=== PATIENT | female | born 1950 | race Caucasian/White ===

== ENCOUNTER 2020-08-21 13:20 | Outpatient (REF) | payer OTHER, SELFPAY ==
--- NOTE | 2020-08-21 13:23 | CT_ITS ---
EXAMINATION: CT CHEST WITHOUT CONTRAST CLINICAL INFORMATION: Pulmonary nodule COMPARISON: None TECHNIQUE: Multidetector volumetric CT imaging of the chest was done. Axial MIP volume rendering provided. Sagittal and coronal reformatted images were obtained. This CT examination was performed using dose optimization techniques as appropriate, variously including the following: *Automated exposure control *Adjustment of mA and/or kV according to patient size (this includes techniques or standardized protocols for targeted exams where dose is matched to indication/reason for exam; i.e. extremities or head) *Use of iterative reconstruction technique DLP: 177 mGy-cm FINDINGS: BETA TESTER: Unremarkable LUNGS: There is a 3 mm peripheral or subpleural right upper lobe nodule adjacent to the fissure axial image 152 series 7. There is a 2 mm peripheral right upper lobe peripheral or subpleural nodule adjacent to the minor fissure axial 267. There is a 3 mm peripheral or subpleural left lower lobe nodule adjacent to the fissure axial image 281 series 7. There is a 3 mm left upper lobe peripheral or subpleural nodule axial image 284 series 7. There are peripheral or subpleural right lower lobe nodules adjacent to the major fissure measuring 2 x 5 mm axial image 293, 4 x 6 mm axial image 296 and 3 x 5 mm axial image 310 series 7. There is a peripheral or subpleural right middle lobe nodule measuring 4 mm axial image 336 series 7. There is a small calcified 1 mm to 2 mm central right lower lobe nodule axial image 332 series 7. MEDIASTINUM: The heart does not appear enlarged. There is mild coronary artery calcification. There is no pericardial effusion. The thoracic aorta is normal in caliber. There are no enlarged hilar or mediastinal lymph nodes. PLEURA: There is no pleural effusion. No pleural mass or thickening. AXILLA: No lymphadenopathy. UPPER ABDOMEN: The gallbladder appears contracted. There are gallstones in the gallbladder. There may be diverticulosis of the colon. OSSEOUS STRUCTURES: There are degenerative changes of the spine. CT/CT chest wo con IMPRESSION: Small bilateral pulmonary nodules the majority of which likely represent subpleural lymph nodes. Mild coronary artery calcification. Gallstones.
== END 2020-08-21 13:21 | disposition home or self-care (01) ==
LOC: HO.CT 13:20
PROVIDERS: PCP Nurse Practitioner Family; Visit Provider Hospitalist
DX: R91.8 Other nonspecific abnormal finding of lung field (principal)
CPT/HCPCS: 71250

== ENCOUNTER → 2020-09-03 09:19 | Outpatient (BNVA) | payer OTHER, SELFPAY | PROVIDERS: PCP Nurse Practitioner Family; Referring Provider Nurse Practitioner Family; Visit Provider Hospitalist | DX: Z76.89 Persons encountering health services in other specified circumstances (principal) ==

== ENCOUNTER → 2021-01-09 14:28 | Outpatient (BNVA) | payer MEDICARE, SELFPAY | PROVIDERS: PCP Nurse Practitioner Family; Visit Provider Internal Medicine | DX: J44.9 Chronic obstructive pulmonary disease, unspecified (principal); R91.8 Other nonspecific abnormal finding of lung field; J30.9 Allergic rhinitis, unspecified; Z87.891 Personal history of nicotine dependence; Z79.899 Other long term (current) drug therapy | CPT/HCPCS: 99212 ==

== ENCOUNTER → 2021-02-26 09:03 | Outpatient (BNVA) | payer MEDICARE, SELFPAY | PROVIDERS: PCP Nurse Practitioner Family; Visit Provider Hospitalist | DX: J30.1 Allergic rhinitis due to pollen (principal); J44.9 Chronic obstructive pulmonary disease, unspecified; R91.8 Other nonspecific abnormal finding of lung field; R06.00 Dyspnea, unspecified; R05 Cough; G47.33 Obstructive sleep apnea (adult) (pediatric); Z79.899 Other long term (current) drug therapy | CPT/HCPCS: 99212 ==

== ENCOUNTER 2021-02-27 16:19 | Outpatient (REF) | payer MEDICARE, SELFPAY ==
--- NOTE | ~2021-02-27 | CT_ITS ---
EXAMINATION: CT CHEST WITHOUT CONTRAST CLINICAL INFORMATION: Pulmonary nodule follow-up COMPARISON: 08/21/2020 TECHNIQUE: Multidetector volumetric CT imaging of the chest was done. Axial MIP volume rendering provided. Sagittal and coronal reformatted images were obtained. This CT examination was performed using dose optimization techniques as appropriate, variously including the following: *Automated exposure control *Adjustment of mA and/or kV according to patient size (this includes techniques or standardized protocols for targeted exams where dose is matched to indication/reason for exam; i.e. extremities or head) *Use of iterative reconstruction technique DLP: 178 mGy-cm FINDINGS: LUNGS: Again seen are scattered pleural nodules, most likely along the right major fissure. No intraparenchymal pulmonary nodules are identified. No emphysema, pulmonary fibrosis or evidence of other interstitial lung disease. No bronchial wall thickening or bronchiectasis. MEDIASTINUM: Normal heart size. No pericardial effusion. Coronary calcifications. No mediastinal, hilar or supraclavicular adenopathy. PLEURA: There is no pleural effusion. No pleural mass or thickening. AXILLA: No lymphadenopathy. UPPER ABDOMEN: Cholelithiasis. OSSEOUS STRUCTURES: No acute or suspicious osseous abnormalities. CT/CT chest wo con IMPRESSION: No suspicious pulmonary nodules. There are stable scattered pleural nodules as seen previously, the appearance of which is classic for lymph nodes.
== END 2021-02-27 16:20 | disposition home or self-care (01) ==
LOC: HO.CT 16:19
PROVIDERS: PCP Nurse Practitioner Family; Visit Provider Hospitalist
DX: R91.8 Other nonspecific abnormal finding of lung field (principal)
CPT/HCPCS: 71250

== ENCOUNTER → 2021-03-04 09:10 | Outpatient (REF) | payer MEDICARE, SELFPAY | LOC: HO.SL 09:10 | PROVIDERS: PCP Nurse Practitioner Family; Visit Provider Hospitalist | DX: G47.33 Obstructive sleep apnea (adult) (pediatric) (principal) | CPT/HCPCS: 95806 ==

== ENCOUNTER → 2021-03-18 09:23 | Outpatient (BNVA) | payer MEDICARE, SELFPAY | PROVIDERS: PCP Nurse Practitioner Family; Visit Provider Hospitalist | DX: G47.33 Obstructive sleep apnea (adult) (pediatric) (principal); R05 Cough; J30.1 Allergic rhinitis due to pollen; J44.9 Chronic obstructive pulmonary disease, unspecified; R06.00 Dyspnea, unspecified; R91.8 Other nonspecific abnormal finding of lung field | CPT/HCPCS: 99212 ==

== ENCOUNTER → 2021-06-13 14:44 | Outpatient (BNVA) | payer MEDICARE, SELFPAY | PROVIDERS: PCP Nurse Practitioner Family; Visit Provider Hospitalist | DX: G47.33 Obstructive sleep apnea (adult) (pediatric) (principal); J30.1 Allergic rhinitis due to pollen; R05 Cough; J44.9 Chronic obstructive pulmonary disease, unspecified; R06.00 Dyspnea, unspecified; R91.8 Other nonspecific abnormal finding of lung field | CPT/HCPCS: 99212 ==

== ENCOUNTER → 2021-07-04 13:19 | Outpatient (BNVA) | payer MEDICARE, SELFPAY | PROVIDERS: PCP Nurse Practitioner Family; Visit Provider Hospitalist | DX: G47.33 Obstructive sleep apnea (adult) (pediatric) (principal); R05.9 Cough, unspecified; J30.1 Allergic rhinitis due to pollen; J45.51 Severe persistent asthma with (acute) exacerbation; R91.8 Other nonspecific abnormal finding of lung field; R06.00 Dyspnea, unspecified | CPT/HCPCS: 96372; 99212; J2930 ==

== ENCOUNTER → 2021-08-01 14:43 | Outpatient (BNVA) | payer MEDICARE, SELFPAY | PROVIDERS: PCP Nurse Practitioner Family; Visit Provider Hospitalist | DX: J45.51 Severe persistent asthma with (acute) exacerbation (principal); J30.1 Allergic rhinitis due to pollen; G47.33 Obstructive sleep apnea (adult) (pediatric); R91.8 Other nonspecific abnormal finding of lung field; R05.9 Cough, unspecified; R06.00 Dyspnea, unspecified | CPT/HCPCS: 99212 ==

== ENCOUNTER → 2021-08-04 09:43 | Outpatient (BNVA) | payer MEDICARE, SELFPAY | PROVIDERS: PCP Nurse Practitioner Family; Visit Provider Hospitalist | DX: J45.51 Severe persistent asthma with (acute) exacerbation (principal) | CPT/HCPCS: 99211 ==

== ENCOUNTER → 2022-08-25 13:56 | Outpatient (BNVA) | payer MEDICARE, SELFPAY | PROVIDERS: PCP Nurse Practitioner Family; Visit Provider Hospitalist | DX: J45.50 Severe persistent asthma, uncomplicated (principal); G47.33 Obstructive sleep apnea (adult) (pediatric); J30.1 Allergic rhinitis due to pollen; R06.00 Dyspnea, unspecified; R91.8 Other nonspecific abnormal finding of lung field; R05.9 Cough, unspecified | CPT/HCPCS: 99212 ==

== ENCOUNTER 2023-03-15 11:04 | Outpatient (REF) | payer MEDICARE, SELFPAY ==
--- NOTE | ~2023-03-15 | CT_ITS ---
EXAMINATION: CT CHEST WITHOUT CONTRAST CLINICAL INFORMATION: Follow-up pulmonary nodules COMPARISON: Previous chest CT and most recent February 2021 TECHNIQUE: Multidetector volumetric CT imaging of the chest was done. Axial MIP volume rendering provided. Sagittal and coronal reformatted images were obtained. This CT examination was performed using dose optimization techniques as appropriate, variously including the following: *Automated exposure control *Adjustment of mA and/or kV according to patient size (this includes techniques or standardized protocols for targeted exams where dose is matched to indication/reason for exam; i.e. extremities or head) *Use of iterative reconstruction technique DLP: 173 mGy-cm FINDINGS: COLLAR TAILOR: Unremarkable LUNGS: Stable small pulmonary nodules. Largest pulmonary nodules are a 2 x 6 mm peripheral or subpleural right lower lobe nodule adjacent to the major fissure axial image 285 series 5 and 4 mm peripheral or subpleural right middle lobe nodule axial 310 series 5. Again, appearance is suggestive of peripheral or subpleural lymph nodes. No new pulmonary nodule. Mild scarring or chronic subsegmental atelectasis in the medial right lower lobe adjacent to vertebral body bony osteophyte. The lungs are otherwise clear. MEDIASTINUM: The mediastinum is normal. CORONARY ARTERY CALCIFICATION: Mild PLEURA: There is no pleural effusion. No pleural mass or thickening. AXILLA: No lymphadenopathy. UPPER ABDOMEN: Gallstone OSSEOUS STRUCTURES: There are degenerative changes of the spine. CT/CT chest wo IV con IMPRESSION: Stable small pulmonary nodules. Fleischner guidelines were followed.
== END 2023-03-15 11:05 | disposition home or self-care (01) ==
LOC: HO.CT 11:04
PROVIDERS: PCP Nurse Practitioner Family; Visit Provider Hospitalist
DX: R91.8 Other nonspecific abnormal finding of lung field (principal)
CPT/HCPCS: 71250

== ENCOUNTER → 2023-03-31 09:14 | Outpatient (BNVA) | payer MEDICARE, SELFPAY | PROVIDERS: PCP Nurse Practitioner Family; Visit Provider Hospitalist | DX: J45.50 Severe persistent asthma, uncomplicated (principal); J30.1 Allergic rhinitis due to pollen; G47.33 Obstructive sleep apnea (adult) (pediatric); R91.8 Other nonspecific abnormal finding of lung field | CPT/HCPCS: 99212 ==

== ENCOUNTER 2024-08-03 14:56 | Outpatient (REF) | payer MEDICARE, SELFPAY ==
--- NOTE | ~2024-08-03 | XR_ITS ---
EXAMINATION: XR CHEST CLINICAL INFORMATION: Dyspnea, unspecified R06.00. COMPARISON: XR Chest 01/14/2016 (Report only). CT chest February 2023 TECHNIQUE: 3 views of the chest were obtained. FINDINGS: No acute significant abnormality is noted involving the heart, lungs, mediastinum, bony thorax or soft tissues. Calcification of the dorsal aorta XR/XR chest 2V IMPRESSION: No acute disease Electronically signed by: Mychal Espinoza MD 09/18/2024 08:19 AM MAR[facility]
== END 2024-08-03 14:57 | disposition home or self-care (01) ==
LOC: HO.XRAY 14:56
PROVIDERS: PCP Nurse Practitioner Family; Visit Provider Hospitalist
DX: R06.00 Dyspnea, unspecified (principal); R91.8 Other nonspecific abnormal finding of lung field; J45.50 Severe persistent asthma, uncomplicated; G47.33 Obstructive sleep apnea (adult) (pediatric); J30.1 Allergic rhinitis due to pollen
CPT/HCPCS: 71046; 99212

== ENCOUNTER 2024-08-03 14:56 | Outpatient (AMB) | payer MEDICARE, SELFPAY ==
[2024-08-03 14:58] VITALS: BP 140/60; PULSE 88; O2SAT 93
--- NOTE | 2024-08-03 14:58 | A.OFFVIS_ITS ---
Vital Signs 08/03/24 14:58 Weight 210 lb 8.663 oz BP 140/60 H Blood Pressure Location Lt brachial Position Sitting Pulse 88 Pulse Source Pulse Oximeter Pulse Oximetry (%) 93 Oxygen Delivery Method Room Air Intake Visit Reasons: asthma Allergies codeine Allergy (Severe, Verified 08/03/24 15:02) Vomiting erythromycin base Allergy (Severe, Verified 08/03/24 15:02) Hives guaifenesin Allergy (Severe, Verified 08/03/24 15:02) Hives meperidine [From Demerol] Allergy (Severe, Verified 08/03/24 15:02) Tachycardia Penicillins Allergy (Severe, Verified 08/03/24 15:02) Hives fluticasone furoate [From Trelegy Ellipta] Allergy (Intermediate, Verified 08/03/24 15:02) Rash, Hives umeclidinium [From Trelegy Ellipta] Allergy (Intermediate, Verified 08/03/24 15:02) Rash, Hives vilanterol [From Trelegy Ellipta] Allergy (Intermediate, Verified 08/03/24 15:02) Rash, Hives nitrofurantoin [From Macrobid] Adverse Reaction (Intermediate, Verified 08/03/24 15:02) Nausea nirmatrelvir [From Paxlovid] Adverse Reaction (Verified 08/03/24 15:02) Abdominal Pain ritonavir [From Paxlovid] Adverse Reaction (Verified 08/03/24 15:02) Abdominal Pain Medication List - Last Reconciled 08/03/24 by Monica Montague LPN albuterol sulfate 90 mcg/actuation 2 puffs inhalation Q6H PRN albuterol sulfate 2.5 mg (3 mL) inhalation Q6H PRN 30 days amlodipine 5 mg PO DAILY atorvastatin 20 mg PO DAILY budesonide 0.5 mg (2 mL) inhalation BID 30 days conjugated estrogens (Premarin) 0.625 mg vaginal DAILY dupilumab (Dupixent) 300 mg (2 mL) subcut Q2W 365 days hydrochlorothiazide 12.5 mg PO DAILY hydrocortisone 2.5% topical levothyroxine 125 mcg PO DAILY lisinopril 40 mg PO DAILY lorazepam 0.5 mg PO DAILY PRN omeprazole 20 mg PO DAILY sertraline 25 mg PO DAILY HPI Comments Details: The patient is a 73 y/o woman with known asthma in addition to pulmonary nodules. She did recently have a CT scan of the chest at [facility] which reviewed demonstrating stable pulmonary nodules. Still the patient is complaining of left-sided chest discomfort. Discomfort appears to be intermittent lasting between seconds to minutes. She describes it as an ache. It is not reproducible. It does not radiate. We did review the CT scan of the chest again and there is no clear explanation for the chest discomfort. With other significant past medical history of heart disease the patient should have complete cardiac evaluation. The patient also has been using QVAR for her asthma. Still been complaining of shortness of breath and coughing. We did check her hypersensitivity panel in addition to her eosinophil count and IgE. No significant abnormalities noted. Therefore, we will optimize his therapy with the addition of a long-acting beta agonist. However, the patient has had significant muscle spasms in the past which we have to monitor. 03/31/2023 the patient is here for a pulmonary follow-up visit. Overall from a respiratory status the patient is doing very well. The addition of the Daliresp has been helpful. She did start with the 250 mcg dose and then increase it to 500 mcg. She is still tolerating it well. Did have some diarrhea and GI symptoms but appear to be little better at this time. She has also had some weight loss which is also helpful for her respiratory status. Did Dupixent still continues to be affecting beneficial. She did undergo her knee surgery. Surgery went well. But, after several months she started developing hemarthrosis and now being followed closely by a specialist out of [place] because of the significant recurrent bloody effusions and pain. She does continue to use her CPAP. CPAP therapy continues to be affecting beneficial. She is using right now a nasal cradle but she is wondering if it nasal pillow will be more effective. I do believe the P 10 mask be very effective in beneficial and easy to use. 08/03/2024 the patient is here for a pulmonary follow-up visit. Since we last spoke the patient has been noticing increasing wheezing. She has been Dupixent now for more than 2 years. Initially she had no wheezing whatsoever. Now that she is noticing some wheezing is surprise there. Explained to her that there may be other triggers that may be affecting her breathing. In addition to that she has noticed some issues with her eyes where she has had dry eyes in addition to stye. Denies any evidence of any conjunctivitis. She understands Dupixent may be a culprit resulting increasing eye issues. If she continues to have issues that are concerning then we can always consider switching her Dupixent to a different agent. She is reluctant to do that though because it Dupixent is been so helpful for her breathing. She also was concerned that her oxygen was little bit low today 93% on room air. We did go for a walking oximetry today oxygen did indeed decrease the drip% with activity. With deep breathing did improve to 97%. Therefore, we talked about working on deep breathing exercises. In the meantime she is going to have a chest x-ray. When she comes back in 6 months will have her get pulmonary function studies. Will also provide the patient with a nebulizer that she can use daily to help her with her br onchospasms and wheezing. If the patient has any issues prior to that she will call if I see any abnormalities in the x-ray I will let her know otherwise will see her after her breathing studies in 6 months. [facility] Medical History (Updated 08/25/22 @ 15:22 by Og Oliveira MD) Asthma HARMONY (obstructive sleep apnea) Cough Allergic rhinitis Dyspnea Asthma-COPD overlap syndrome Pulmonary nodules Family History Other HTN (hypertension) Social History (Updated 08/01/21 @ 15:03 by Meg Georges Dinora) Patient Tobacco Use Status: Former Tobacco user Tobacco use type: Cigarette Years Smoked: 18 years Review of Systems Const Denies daytime sleepiness, Denies night sweats, Denies snoring and Denies stops breathing during sleep Eyes Reports as per HPI, Reports dry eyes, Reports irritation and Reports itchy eyes ENT Denies change in voice, Denies lip swelling, Denies mouth pain, Reports nasal congestion, Reports nasal discharge and Denies tongue swelling Card Denies chest pain, Denies dyspnea and Reports dyspnea on exertion Resp Reports cough, Denies hemoptysis, Denies dyspnea, Reports dyspnea on exertion, Denies snoring and Reports wheezing GI Denies abdominal pain Musc Reports as per HPI, Reports arthralgias, Reports joint swelling and Reports limited range of motion Neuro Denies Neuro-related abnormal movements Psych Denies no additional complaints Riaz/Lymph Denies easy bleeding and Denies lymphadenopathy Aller/Immun Reports itchy eyes, Denies lip swelling, Denies tongue swelling and Reports wheezing Physical Exam Vital Signs: Last Vital Signs Pulse 88 08/03/24 14:58 BP 140/60 H 08/03/24 14:58 Pulse Ox 93 08/03/24 14:58 Oxygen Delivery Method Room Air 08/03/24 14:58 Const General: alert Neck Neck: Yes normal visual inspection, Yes full ROM and Yes no lymphadenopathy Chest Chest palpation & inspection: normal inspection of the chest Resp Auscultation: no rhonchi, no wheezes and diminished lung sounds Cardio Rate: regular rate Rhythm: regular rhythm Heart sounds: S1 normal heart sound present and S2 normal heart sound present GI Palpation (GI): Soft to palpation and nontender Auscultation: normal bowel sounds Skin General skin exam: rashes and/or lesions noted Assessment & Plan Assessment & Plan (1) Asthma: Code(s): J45.909 - Unspecified asthma, uncomplicated Category: Medical Qualifiers: Asthma complication type: uncomplicated Asthma persistence: persistent Asthma severity: severe Qualified Code(s): J45.50 - Severe persistent asthma, uncomplicated (2) HARMONY (obstructive sleep apnea): Code(s): G47.33 - Obstructive sleep apnea (adult) (pediatric) Category: Medical (3) Allergic rhinitis: Code(s): J30.9 - Allergic rhinitis, unspecified Category: Medical Qualifiers: Allergic rhinitis seasonality: non-seasonal Allergic rhinitis trigger: pollen Qualified Code(s): J30.1 - Allergic rhinitis due to pollen (4) Pulmonary nodules: Comment: stable based on CT chest 03/17 Code(s): R91.8 - Other nonspecific abnormal finding of lung field Category: Medical (5) Dyspnea: Comment: better Code(s): R06.00 - Dyspnea, unspecified Category: Medical Qualifiers: Dyspnea type: dyspnea on exertion Qualified Code(s): R06.00 - Dyspnea, unspecified Plan continue Dupixent. Will monitor for any worsening eye conditions GONZALO as needed ( Has sample of Airsupra) Needs a nebulizer for albuterol APAP is broken, will need a repacement APAP machine at this time CXR PFTs in 6 months Follow-up in 6 months Orders: Orders XR chest 2V Today R06.00 - Dyspnea, unspecified PFT pulmonary function test 6 Months R06.00 - Dyspnea, unspecified Medications: Changed From albuterol sulfate 2.5 mg (3 mL) inhalation Q6H 30 days PRN 180 mL 3RF shortness of breath or wheezing To albuterol sulfate 2.5 mg (3 mL) inhalation DAILY 30 days 90 mL 3RF Coding Level of Care Code Est Pt Level 4 (58377) Diagnoses Severe persistent asthma without complication J45.50 Asthma complication type: uncomplicated Asthma persistence: persistent Asthma severity: severe HARMONY (obstructive sleep apnea) G47.33 Non-seasonal allergic rhinitis due to pollen J30.1 Allergic rhinitis seasonality: non-seasonal Allergic rhinitis trigger: pollen Pulmonary nodules R91.8 Dyspnea on exertion R06.00 Dyspnea type: dyspnea on exertion Time Spent (min) 18
== END 2024-08-03 15:27 | disposition home or self-care (01) ==
LOC: HO.HPS 14:57
PROVIDERS: PCP Nurse Practitioner Family; Visit Provider Hospitalist
DX: J45.50 Severe persistent asthma, uncomplicated (principal); G47.33 Obstructive sleep apnea (adult) (pediatric); J30.1 Allergic rhinitis due to pollen; R91.8 Other nonspecific abnormal finding of lung field; R06.00 Dyspnea, unspecified
CPT/HCPCS: 99214

== ENCOUNTER 2024-10-26 09:32 | Outpatient (REF) | payer MEDICARE, SELFPAY ==
[2024-10-26 10:39] LABS: MANUAL DIFF FLAG NO
[2024-10-26 11:53] LABS: Basophils Absolute Auto 0.1 X10*3/uL (0.0-0.2); Basophils Percent Auto 1.5 % (0-2); Eosinophils Absolute Auto 0.3 X10*3/uL (0.0-0.4); Eosinophils Percent Auto 3.8 % (0-4); Hematocrit 41.4 % (37.0-47.0); Hemoglobin 13.6 g/dl (12.0-16.0); Imm Gran Abs Auto 0.02 X10*3/uL (0.00-0.03); Imm Gran Pct Auto 0.3 % (0.0-0.4); Lymphocytes Percent Auto 13.2 % (20-40); Mean Corpuscular HGB Conc 32.9 g/dl (31.0-35.0); Mean Corpuscular Volume 91.2 fL (80.0-98.0); Mean Platelet Volume 9.6 fL (9.4-12.3); Monocytes Absolute Auto 0.6 X10*3/uL (0.1-1.2); Monocytes Percent Auto 7.7 % (2-11); Neutrophils Absolute Auto 5.4 x10*3/uL (2.0-8.3); Neutrophils Percent Auto 73.5 % (45-73); Platelet Count 426 X10*3/uL (160-400); Red Blood Count 4.54 X10*6/uL (4.20-5.50); Red Cell Distribution Width 14.4 % (11.0-16.0); White Blood Count 7.3 X10*3/uL (4.8-10.8)
[2024-10-26 12:29] LABS: Erythrocyte Sedimentation Rate 17 MM/HR (0-20)
--- OUTSIDE RECORDS SUMMARY | 2024-10-26 13:47 | XMS_ITS | Clinical Summary ---
Author Organization [facility] [place] [address] Care Team Providers Care Certified Medication Aide Name Role Phone Darby You MD Primary Care Provider [phone] Social History Tobacco Use Types Packs/Day Years [...] Procedure Name Priority Date/Time Associated Diagnosis Comments [facility] SCREENING DIGITAL Routine 10/07/2023 1:00 PM EST Encounter for screening mammogram for malignant neoplasm of breast [facility] DEXA AXIAL SKELETON Routine 09/01/2022 11:53 AM EST Unspecified menopausal and perimenopausal disorder from Last 3 Months or Most Recently Relevant to Health Maintenance Results * [facility] SCREENING DIGITAL (10/07/2023 1:00 PM EST) Anatomical Region Laterality Modality Mammography 10/07/2023 10:0 0 AM EST Narrative 10/07/2023 1:00 PM EST [facility] Diagnostic Imaging Department [address] [place] [id number] Patient: ??ESTEFANIA MORALEZ ?/Age/Sex: 1950 - 72 - F Unit#: ??[id number] ? Location/Status: ??SPDIMAM/REG CLI ? Mnemonic/Ordering Site: [...] and MLO projections. Computer aided detection with [employer] 3D 3.1 was employed. TISSUE DENSITY: b. [...] Procedure Note Rayray Bass MD - 05/15/2024 [facility] Diagnostic Imaging Department [address] [place], [place] [id number] Patient: ESTEFANIA MORALEZ /Age/Sex: 1950 - 72 - F Unit#: [id number] Location/Status: SPDIMAM/REG CLI Mnemonic/Ordering Site: [facility] Ordering Physician: JUSTINA DUMONT CNM [facility] Screening Digital - 10/07/23 - 1014 Report Status:Signed EXAM: [facility] Screening Digital EXAM DATE AND TIME: 10/07/2023 10:15 AM HISTORY: Screening. Mother had breast carcinoma at age 61. COMPARISON: 09/01/22, 08/30/21, 08/23/20, 07/26/19 TECHNIQUE: Bilateral digital breast tomosynthesis was performed in the CCand MLO projections. Computer aided detection with [employer] 3D 3.1was employed. TISSUE DENSITY: b. There [...] AM EST Narrative 09/01/2022 11:53 AM EST [facility] Diagnostic Imaging Department [address] [place] [address] Patient: ??ESTEFANIA MORALEZ ?/Age/Sex: 1950 - 71 - F Unit#: ??[id number] ? Location/Status: ??SPDIMAM/REG CLI ? Mnemonic/Ordering Site: ??MAMDEXAAX/SPMAM Ordering Physician: ??JUSTINA DUMONT CNM [facility] Dexa Axial Skeleton - 09/01/22 - 2084 HISTORY: ??The patient is a 71-year-old postmenopausal [...] probability of hip fracture of 2.2%. Code 13172 Dictating Physician: ??LAURIE QUINTEROS MD Electronically Signed by: ??LAURIE QUINTEROS MD Dic Date/Time: ??09/01/22 1152 Sign date/Time: ??09/01/22 1153 Procedure Note Laurie Quinteros MD - 10/29/2023 [facility] Diagnostic Imaging Department [address] [place] [address] Patient: ESTEFANIA MORALEZ Anel ZuñigaB./Age/Sex: 1950 - 71 - F Unit#: [id number] Location/Status: [facility] Ordering Physician: JUSTINA DUMONT CNM [facility] Dexa Axial Skeleton - 09/01/22 - 1113 HISTORY: The patient is a 71-year-old postmenopausal [...] density of the femurs bilaterally is 0.911 gm/wg9ccfwy is 90% of that of young normals [...] probability of hip fracture of 2.2%. Code 02276 Dictating Physician: LAURIE QUINTEROS MD Electronically Signed by: LAURIE QUINTEROS MD Dic Date/Time: 09/01/22 1152 Sign date/Time: 09/01/22 1153 Justina Dumont [facility] IM BI PROCEDURES from Last 3 Months or Most Recently Relevant to Health Maintenance Care Teams Certified Medication Aide Relationship Specialty Start Date End Date Daryb You MD PCP - General Internal Medicine 11/09/17
--- OUTSIDE RECORDS SUMMARY | 2024-10-26 13:48 | XMS_ITS | Clinical Summary ---
Author Organization [facility] Address [address] [place] [address] Care Team Providers Care Sugar Presser Name Role Phone Unknown Primary Care Provider [phone] Allergies Active Allergy Reactions Criticality Noted Date [...] this topic Medical Devices Implanted Type Area Home Aide Device Identifier Shelf Expiration Date Model / Serial / Lot S220gh Sphere Embolization Ylw Embosphere 100-300um Trisacryl Geltn - [id number] Implanted:Qty: 1 on 05/19/2023 by Frankie Marie DO at [facility] Cardiac N/A: Arterial [employer] [id number] 01/11/2026 S220GH / / [id number] Sphere Embolization Blue Embosphere 300-500um Trisacryl - [id number] Implanted:Qty: 1 on 05/19/2023 by Frankie Marie DO at [facility] Cardiac N/A: Arterial [employer] [id number] 12/20/2025 [id number] / / [id number] Care Teams Sugar Presser Relationship Specialty Start Date End Date Unknown Unknow Provider Address PCP - General 05/19/23
[2024-10-27 13:27] LABS: Immunoglobulin E 10 kU/L (<OR=114)
== END 2024-10-26 09:33 | disposition home or self-care (01) ==
LOC: HO.LAB 09:32
PROVIDERS: PCP Nurse Practitioner Family; Referring Provider Internal Medicine; Visit Provider Hospitalist
DX: J45.50 Severe persistent asthma, uncomplicated (principal); G47.33 Obstructive sleep apnea (adult) (pediatric); J30.1 Allergic rhinitis due to pollen; R91.8 Other nonspecific abnormal finding of lung field; R06.00 Dyspnea, unspecified
CPT/HCPCS: 36415; 82785; 85025; 85652; 99212

== ENCOUNTER 2024-10-26 09:32 | Outpatient (AMB) | payer MEDICARE, SELFPAY ==
--- NOTE | 2024-10-26 09:39 | MHC.OFFVIS ---
Vital Signs 10/26/24 09:40 Height 5 ft 9 in Weight 210 lb 8.663 oz BMI 31.1 BP 106/68 Blood Pressure Location Rt brachial Position Sitting Pulse 73 Pulse Source Pulse Oximeter Pulse Oximetry (%) 95 Oxygen Delivery Method Room Air Intake Visit Reasons: discuss biologics Allergies codeine Allergy (Severe, Verified 10/26/24 09:46) Vomiting erythromycin base Allergy (Severe, Verified 10/26/24 09:46) Hives guaifenesin Allergy (Severe, Verified 10/26/24 09:46) Hives meperidine [From Demerol] Allergy (Severe, Verified 10/26/24 09:46) Tachycardia Penicillins Allergy (Severe, Verified 10/26/24 09:46) Hives fluticasone furoate [From Trelegy Ellipta] Allergy (Intermediate, Verified 10/26/24 09:46) Rash, Hives umeclidinium [From Trelegy Ellipta] Allergy (Intermediate, Verified 10/26/24 09:46) Rash, Hives vilanterol [From Trelegy Ellipta] Allergy (Intermediate, Verified 10/26/24 09:46) Rash, Hives nitrofurantoin [From Macrobid] Adverse Reaction (Intermediate, Verified 10/26/24 09:46) Nausea nirmatrelvir [From Paxlovid] Adverse Reaction (Verified 10/26/24 09:46) Abdominal Pain ritonavir [From Paxlovid] Adverse Reaction (Verified 10/26/24 09:46) Abdominal Pain HPI Comments Details: The patient is a 73 y/o woman with known asthma in addition to pulmonary nodules. She did recently have a CT scan of the chest at [facility] which reviewed demonstrating stable pulmonary nodules. Still the patient is complaining of left-sided chest discomfort. Discomfort appears to be intermittent lasting between seconds to minutes. She describes it as an ache. It is not reproducible. It does not radiate. We did review the CT scan of the chest again and there is no clear explanation for the chest discomfort. With other significant past medical history of heart disease the patient should have complete cardiac evaluation. The patient also has been using QVAR for her asthma. Still been complaining of shortness of breath and coughing. We did check her hypersensitivity panel in addition to her eosinophil count and IgE. No significant abnormalities noted. Therefore, we will optimize his therapy with the addition of a long-acting beta agonist. However, the patient has had significant muscle spasms in the past which we have to monitor. 03/31/2023 the patient is here for a pulmonary follow-up visit. Overall from a respiratory status the patient is doing very well. The addition of the Daliresp has been helpful. She did start with the 250 mcg dose and then increase it to 500 mcg. She is still tolerating it well. Did have some diarrhea and GI symptoms but appear to be little better at this time. She has also had some weight loss which is also helpful for her respiratory status. Did Dupixent still continues to be affecting beneficial. She did undergo her knee surgery. Surgery went well. But, after several months she started developing hemarthrosis and now being followed closely by a specialist out of [place] because of the significant recurrent bloody effusions and pain. She does continue to use her CPAP. CPAP therapy continues to be affecting beneficial. She is using right now a nasal cradle but she is wondering if it nasal pillow will be more effective. I do believe the P 10 mask be very effective in beneficial and easy to use. 08/03/2024 the patient is here for a pulmonary follow-up visit. Since we last spoke the patient has been noticing increasing wheezing. She has been Dupixent now for more than 2 years. Initially she had no wheezing whatsoever. Now that she is noticing some wheezing is surprise there. Explained to her that there may be other triggers that may be affecting her breathing. In addition to that she has noticed some issues with her eyes where she has had dry eyes in addition to stye. Denies any evidence of any conjunctivitis. She understands Dupixent may be a culprit resulting increasing eye issues. If she continues to have issues that are concerning then we can always consider switching her Dupixent to a different agent. She is reluctant to do that though because it Dupixent is been so helpful for her breathing. She also was concerned that her oxygen was little bit low today 93% on room air. We did go for a walking oximetry today oxygen did indeed decrease the drip% with activity. With deep breathing did improve to 97%. Therefore, we talked about working on deep breathing exercises. In the meantime she is going to have a chest x-ray. When she comes back in 6 months will have her get pulmonary function studies. Will also provide the patient with a nebulizer that she can use daily to help her with her bronchospasms and wheezing. If the patient has any issues prior to that she will call if I see any abnormalities in the x-ray I will let her know otherwise will see her after her breathing studies in 6 months. 10/26/2024 the patient is here for a pulmonary follow-up visit. The patient has been struggling because her Dupixent is no longer covered. She does have significant asthma. She did go to her customer technical services manager recently and she was having some wheezing and she was started on Arnuity. She seems to be tolerating it. She took her last dose of Dupixent. Now will see what happens with her symptoms. Although right now she does have some wheezing on exam so therefore symptoms will likely worsen in a few weeks once he Dupixent wears off. The patient does have severe persistent asthma she has responded very well to biologics. Will go ahead and recheck her blood work including a CBC with differential to assess her eosinophils and also an IgE level. Once we have those levels we can assess to see if she will benefit from a different type of biologic. We can try to see if we can get better coverage to make sure the patient can financially get the medication. In the meantime will switch her Arnuity to Wixela to have some long-acting beta effect. The patient will return in 3 months. If she has any issues prior to that she will call for an earlier assessment. Hopefully we can get her back on biologics soon. The patient also has underlying sleep apnea. She does have CPAP. [facility] Medical History (Updated 08/25/22 @ 15:22 by Og Oliveira MD) Asthma HARMONY (obstructive sleep apnea) Cough Allergic rhinitis Dyspnea Asthma-COPD overlap syndrome Pulmonary nodules Family History Other HTN (hypertension) Social History (Updated 08/01/21 @ 15:03 by DIONNE Mann) Patient Tobacco Use Status: Former Tobacco user Tobacco use type: Cigarette Years Smoked: 18 years Review of Systems Const Denies daytime sleepiness, Denies night sweats, Denies snoring and Denies stops breathing during sleep Eyes Reports as per HPI, Reports dry eyes, Reports irritation and Reports itchy eyes ENT Denies change in voice, Denies lip swelling, Denies mouth pain, Reports nasal congestion, Reports nasal discharge and Denies tongue swelling Card Denies chest pain, Denies dyspnea and Reports dyspnea on exertion Resp Reports cough, Denies hemoptysis, Denies dyspnea, Reports dyspnea on exertion, Denies snoring and Reports wheezing GI Denies abdominal pain Musc Reports as per HPI, Reports arthralgias, Reports joint swelling and Reports limited range of motion Neuro Denies Neuro-related abnormal movements Psych Denies no additional complaints Riaz/Lymph Denies easy bleeding and Denies lymphadenopathy Aller/Immun Reports itchy eyes, Denies lip swelling, Denies tongue swelling and Reports wheezing Physical Exam Vital Signs: Last Vital Signs Pulse 73 10/26/24 09:40 BP 106/68 10/26/24 09:40 Pulse Ox 95 10/26/24 09:40 Oxygen Delivery Method Room Air 10/26/24 09:40 BMI result Body Mass Index 31.1 Const General: alert Neck Neck: Yes normal visual inspection, Yes full ROM and Yes no lymphadenopathy Chest Chest palpation & inspection: normal inspection of the chest Resp Effort & Inspection: prolonged expiratory phase Auscultation: no rhonchi, wheezes and diminished lung sounds Cardio Rate: regular rate Rhythm: regular rhythm Heart sounds: S1 normal heart sound present and S2 normal heart sound present GI Palpation (GI): Soft to palpation and nontender Auscultation: normal bowel sounds Skin General skin exam: rashes and/or lesions noted Assessment & Plan Assessment & Plan (1) Asthma: Code(s): J45.909 - Unspecified asthma, uncomplicated Category: Medical Qualifiers: Asthma complication type: uncomplicated Asthma persistence: persistent Asthma severity: severe Qualified Code(s): J45.50 - Severe persistent asthma, uncomplicated (2) HARMONY (obstructive sleep apnea): Code(s): G47.33 - Obstructive sleep apnea (adult) (pediatric) Category: Medical (3) Allergic rhinitis: Code(s): J30.9 - Allergic rhinitis, unspecified Category: Medical Qualifiers: Allergic rhinitis trigger: pollen Allergic rhinitis seasonality: non-seasonal Qualified Code(s): J30.1 - Allergic rhinitis due to pollen (4) Pulmonary nodules: Comment: stable based on CT chest 03/17 Code(s): R91.8 - Other nonspecific abnormal finding of lung field Category: Medical (5) Dyspnea: Comment: better Code(s): R06.00 - Dyspnea, unspecified Category: Medical Qualifiers: Dyspnea type: dyspnea on exertion Qualified Code(s): R06.00 - Dyspnea, unspecified Plan Dupixent no longer covered. Consider Johnson Cabezas. We will decide base on her bloodwork GONZALO as needed start Wixela stop Arnuity Needs a nebulizer for albuterol APAP bloodwork Follow-up in 2-3 months Orders: Orders Complete Blood Count Auto Diff Today J45.50 - Severe persistent asthma, uncomplicated Erythrocyte Sedimentation Rate Today J45.50 - Severe persistent asthma, uncomplicated Immunoglobulin E Today J45.50 - Severe persistent asthma, uncomplicated Medications: New fluticasone propion-salmeterol 250-50 mcg/dose (Wixela Inhub) 1 inh inhalation Q12H 60 ea 11RF 30 days Coding Level of Care Code Est Pt Level 4 (12827) Diagnoses Severe persistent asthma without complication J45.50 Asthma complication type: uncomplicated Asthma persistence: persistent Asthma severity: severe HARMONY (obstructive sleep apnea) G47.33 Non-seasonal allergic rhinitis due to pollen J30.1 Allergic rhinitis trigger: pollen Allergic rhinitis seasonality: non-seasonal Pulmonary nodules R91.8 Dyspnea on exertion R06.00 Dyspnea type: dyspnea on exertion Time Spent (min) 16
[2024-10-26 09:40] VITALS: BP 106/68; PULSE 73; O2SAT 95; BMI 31.1
--- OUTSIDE RECORDS SUMMARY | 2024-10-26 12:35 | XMS_ITS ---
Author Name [facility] Organization Unknown History of Medication Use Medication Directions Dispensed Refills Start Date End Date Stat Vitamin D3 (CHOLECALCIFEROL) 50 MCG (1999 UT) tablet Take 1 tablet (2,000 Units total) by mouth daily. active amLODIPine (NORVASC) 5 MG tablet Take 1 tablet (5 mg total) by mouth daily. active Ascorbic Acid (vitamin C) 1000 MG tablet Take 1 tablet (1,000 mg total) by mouth daily. active LORazepam (ATIVAN) 0.5 MG tablet Take 1 tablet (0.5 mg total) by mouth daily as needed. 06/18/2021 active
--- OUTSIDE RECORDS SUMMARY | 2024-10-26 12:35 | XMS_ITS | Clinical Summary ---
Author Organization [facility] Address [address] [place] [id number] Care Team Providers Care Sew On Operator Name Role Phone Unknown Primary Care Provider [phone] Allergies Active Allergy Reactions Criticality Noted Date Comments Codeine GI Intolerance/Nausea/Vomiting Low 05/18/2023 Meperidine Palpitations Medium 05/18/2023 Erythromycin Swelling Medium 05/18/2023 Nitrofurantoin GI Intolerance/Nausea/Vomiting Low 05/18/2023 Nirmatrelvir-Ritonavir GI Intolerance/Nausea/Vomiting Low 05/18/2023 Penicillin G Benzathine Swelling Medium 05/18/2023 Medications Medication Sig Dispensed Refills Start Date End Date Status albuterol (PROVENTIL HFA; VENTOLIN HFA) 108 (90 Base) MCG/ACT inhaler Inhale 108 puffs 2 times a day. 08/26/2021 Active atorvastatin (LIPITOR) 20 MG tablet Take 1 tablet (20 mg total) by mouth daily. 07/08/2020 Active Dupilumab (Dupixent) 100 MG/0.67ML Solution Prefilled Syringe Inject 100 mg under the skin 2 (two) times a month. 03/05/2022 Active levothyroxine (SYNTHROID, LEVOTHROID) 125 MCG tablet Take 1 tablet (125 mcg total) by mouth daily. 09/30/2021 Active lisinopril (PRINIVIL,ZeSTRIL) 40 MG tablet Take 1 tablet (40 mg total) by mouth daily. 04/15/2021 Active LORazepam (ATIVAN) 0.5 MG tablet Take 1 tablet (0.5 mg total) by mouth daily as needed. 06/18/2021 Active amLODIPine (NORVASC) 5 MG tablet Take 1 tablet (5 mg total) by mouth daily. Active estradiol (VAGIFEM) 10 MCG vaginal tablet Insert 1 tablet (10 mcg total) into the vagina 2 (two) times a week. Active Vitamin D3 (CHOLECALCIFEROL) 50 MCG (2000 UT) tablet Take 1 tablet (2,000 Units total) by mouth daily. Active Ascorbic Acid (vitamin C) 1000 MG tablet Take 1 tablet (1,000 mg total) by mouth daily. Active acetaminophen (TYLENOL) 500 MG tablet Take 1 tablet (500 mg total) by mouth 4 times daily (every 6 hours) as needed for mild pain. Active Social History Tobacco Use Types Packs/Day Years Used Date Smoking Tobacco: Never Assessed Sex and Gender Information Value Date Recorded Sex Assigned at Female 05/19/2023 11:32 AM EDT Gender Identity Female 05/19/2023 11:32 AM EDT Sexual Orientation Heterosexual (straight) 05/19 11:32 AM EDT Last Filed Vital Signs Vital Sign Reading Time Taken Comments Blood Pressure 134/63 05/19/2023 5:32 PM EDT Pulse 74 05/19/2023 5:32 PM EDT Temperature 36.7 ??C (98 ??F) 05/19/2023 11:55 AM EDT Respiratory Rate 18 05/19/2023 5:32 PM EDT Oxygen Saturation 94% 05/19/2023 5:32 PM EDT Inhaled Oxygen Concentration - - Weight 90.7 kg (200 lb) 05/19/2023 11:55 AM EDT Height 172.7 cm (5' 8 ) 05/19/2023 11:55 AM EDT Body Mass Index 30.41 05/19/2023 11:55 AM EDT Plan of Treatment Health Maintenance Due Date Last Done Comments Hepatitis C Virus Screening 1950 COVID-19 Vaccine (#1) 1954 DTaP/Tdap/Td Vaccines (1 - Tdap) 1968 Pneumococcal Vaccines 50+ (1 of 2 - PCV) 1968 Zoster (Shingles) Vaccine (1 of 2) 1968 Mammogram 1989 Colonoscopy 1994 RSV Vaccine 60 years and old er and Patients (1 - Risk 60-74 years 1-dose series) 2009 DXA Bone Density (Females,Ag es 65 and older) 2014 Influenza Vaccine 04/27/2024 07/06/2023 Hepatitis B Vaccines Aged Out No long er eligible based on patient's age to complete this topic Medical Devices Implanted Type Area Imaging System Administrator Device Identifier Shelf Expiration Date Model / Serial / Lot [id number] Sphere Embolization Ylw Embosphere 100-300um Trisacryl Geltn - [id number] Implanted:Qty: 1 on 05/19/2023 by Frankie Marie DO at [facility] Cardiac N/A: Arterial [employer] [id number] 01/11/2026 [id number] / / [id number] Sphere Embolization Blue Embosphere 300-500um Trisacryl - [id number] Implanted:Qty: 1 on 05/19/2023 by Frankie Marie DO at [facility] Cardiac N/A: Arterial [employer] [id number] 12/20/2025 [id number] / / [id number] Care Teams Sew On Operator Relationship Specialty Start Date End Date Unknown Unknow Provider Address PCP - General 05/19/23
--- OUTSIDE RECORDS SUMMARY | 2024-10-26 12:35 | XMS_ITS | Clinical Summary ---
Author Organization [address] Address [address] [place] [id number] Phone Care Team Providers Care Gluten Settling Tender Name Role Phone Caridad Mcqueen Primary Care Provider [phone] Allergies Active Allergy Reactions Criticality Noted Date Comments Codeine High 03/26/2019 Meperidine High 03/26/2019 Erythromycin High 03/26/2019 Guaifenesin High 03/26/2019 Penicillins High 03/26/2019 Medications albuterol (PROVENTIL, VENTOLIN) 2.5 mg /3 mL (0.083 %) nebulizer solution Take 3 mLs (2.5 mg total) by nebulization every 4 (four) hours as needed for Wheezing or Shortness of Breath (Coughing) for up to 25 doses 75 mL 9 Active Social History Tobacco Use Types Packs/Day Years Used Date Smoking Tobacco: Former Smokeless Tobacco: Never Alcohol Use Standard Drinks/Week Comments Yes 0 (1 standard drink = 0.6 oz pur e alcohol) socially Comments Unknown Sex and Gender Information Value Date Recorded Sex Assigned at Not on file Legal Sex Female 7:49 AM EDT Gender Identity Female 03/26/2019 7:58 AM EDT Sexual Orientation Not on file Last Filed Vital Signs Vital Sign Reading Time Taken Comments Blood Pressure 152/80 03/26/2019 9:00 AM EDT Pulse 96 03/26/2019 9:00 AM EDT Temperature 36.9 ??C (98.4 ??F) 03/26/2019 9:00 AM ED T Respiratory Rate 20 03/26/2019 9:00 AM EDT Oxygen Saturation 96% 03/26/2019 9:00 AM EDT Inhaled Oxygen Concentration - - Weight 95.3 kg (210 lb) 03/26/2019 8:01 AM EDT Height 175.3 cm (5' 9 ) 03/26/2019 8:01 AM EDT Body Mass Index 31.01 03/26/2019 8:01 AM EDT Plan of Treatment Health Maintenance Due Date Last Done Comments HIV screening 1962 Hepatitis C screening 12/31/1967 Tetanus adult (Td q 10,TDAP once) 1969 Breast cancer screening 1989 Lipid disorder screening 1989 Colon cancer screening, Colonoscopy 1994 Diabetes screening 1994 Shingles vaccine (Shingrix) (1 of 2 - Shingrix (RZV) 2 Dose Standard Series) 12/31/1999 Osteoporosis screening (bone density) 2014 Pneumo Vaccine 65+ (1 of 1 - PCV) 2014 Influenza vaccine 04/27/2024 Covid-19 vaccine series ( - 2023-25 season) 2024 RSV Discussion (1 - 1-dose 7 5+ series) 2024 Cervical cancer screening Discontinued Meningococcal Vaccine Aged Out No charla lópez eligible based on patient's age to complete this topic Insurance * Guarantor: Whitney Moralez Account Type Relation to Patient Date of Phone Billing Address Personal/Family Self 1950 [address] [address] MEDICARE MANAGED MISC * Guarantor: Whitney Moralez Account Type Relation to Patient Date of Phone Billing Address Personal/Family Self 1950 [address] [address] MEDICARE MANAGED MISC * Guarantor: Whitney Moralez Account Type Relation to Patient Date of Phone Billing Address Personal/Family Self 1950 [address] [address] [facility] Care Teams Gluten Settling Tender Relationship Specialty Start Date End Date Caridad Mcqueen [address] [place] [address] PCP - General 03/26/19
--- OUTSIDE RECORDS SUMMARY | 2024-10-26 12:35 | XMS_ITS | Clinical Summary ---
Author Organization [facility] [place] [address] Care Team Providers Care Contour Band Saw Operator Vertical Name Role Phone Darby You MD Primary Care Provider [phone] Social History Tobacco Use Types Packs/Day Years Used Date Smoking Tobacco: Former Cigarettes Smokeless Tobacco: Never Alcohol Use Standard Drinks/Week Comments Yes 0 (1 standard drink = 0.6 oz pur e alcohol) Sex and Gender Information Value Date Recorded Sex Assigned at Not on file Gender Identity Not on file Sexual Orientation Not on file Obstetrics History Plan of Treatment Health Maintenance Due Date Last Done Comments Pneumococcal Vaccine: 65+ Years (1 of 2 - PCV) 12/31/1955 DTaP,Tdap,and Td Vaccines (1 - Tdap) 1968 Zoster Vaccines (1 of 2) 12/31/1999 RSV Immunization Patients 60+ Years Old (1 - Risk 60-74 years 1-dose series) 2009 Colorectal Cancer Screening: Colonoscopy 08/30/2022 Depression Screening 08/30/2022 Falls Risk Assessment 08/30/2022 Hepatitis C Screening 08/30/2022 Social Influencers of Health Screening 08/30/2022 COVID-19 Vaccine (1 - 2023- season) 2024 Influenza Vaccine (#1) 2024 Breast Cancer Screening 10/07/2025 10/07/19 24, 09/01/2022, 08/31/2021, Additional history exists Osteoporosis Screening (Bone Density Screening) 09/01/2032 09/01/2022 HIB Vaccines Aged Out No longer eligi ble based on patient's age to complete this topic HPV Vaccines Aged Out No longer eligi ble based on patient's age to complete this topic Hepatitis A Vaccines Aged Out No long er eligible based on patient's age to complete this topic Hepatitis B Vaccines Aged Out No long er eligible based on patient's age to complete this topic IPV Vaccines Aged Out No longer eligi ble based on patient's age to complete this topic MMR Vaccines Aged Out No longer eligi ble based on patient's age to complete this topic Meningococcal ACWY Vaccine Aged Out N o longer eligible based on patient's age to complete this topic RSV Immunization Patients Under 20 months Aged Out No longer eligible based on patient's age to complete this topic Varicella Vaccines Aged Out No longer eligible based on patient's age to complete this topic Procedures Procedure Name Priority Date/Time Associated Diagnosis Comments [facility] SCREENING DIGITAL Routine 10/07/2023 1:00 PM EST Encounter for screening mammogram for malignant neoplasm of breast [facility] DEXA AXIAL SKELETON Routine 09/01/2022 11:53 AM EST Unspecified menopausal and perimenopausal disorder from Last 3 Months or Most Recently Relevant to Health Maintenance Results * [facility] SCREENING DIGITAL (10/07/2023 1:00 PM EST) Anatomical Region Laterality Modality Mammography 10/07/2023 10:0 0 AM EST Narrative 10/07/2023 1:00 PM EST [facility] Diagnostic Imaging Department [address] [place] [address] [id number] Patient: ??ESTEFANIA MORALEZ ?/Age/Sex: 1950 - 72 - F Unit#: ??[id number] ? Location/Status: ??SPDIMAM/REG CLI ? Mnemonic/Ordering Site: ??DIGSC/SPMAM Ordering Physician: ??JUSTINA DUMONT CNM [facility] Screening Digital - 10/07/23 - 1014 Report Status:Signed EXAM: [facility] Screening Digital EXAM DATE AND TIME: 10/07/2023 10:15 AM HISTORY: ??Screening. Mother had breast carcinoma at age 61. COMPARISON: ??09/01/22, 08/30/21, 08/23/20, 07/26/19 TECHNIQUE: Bilateral digital breast tomosynthesis was performed in the CC and MLO projections. Computer aided detection with [employer] 3D 3.1 was employed. TISSUE DENSITY: b. There are scattered areas of fibroglandular density. FINDINGS: No suspicious masses, grouped microcalcifications, or areas of architectural distortion are seen. A small group of coarse, benign calcifications is again seen in the posteromedial right breast. The skin and vascularity are unremarkable. IMPRESSION: Stable mammographic appearance of the breasts. ??No evidence of malignancy is seen. A negative mammogram in the presence of a clinically suspicious palpable abnormality does not preclude the possibility of malignancy or alter the indications for biopsy. BI-RADS: ??Category 2: Benign RECOMMENDATION(S): 1: Routine screening mammogram BILATERAL in 1 year. Dictating Physician: ??RAYRAY BASS MD Electronically Signed by: ??RAYRAY BASS MD Dic Date/Time: ??10/07/23 1300 Sign date/Time: ??10/07/23 1300 Procedure Note Rayray Bass MD - 05/15/2024 [facility] Diagnostic Imaging Department [address] [place], [place] [id number] Patient: ESTEFANIA MORALEZ /Age/Sex: 1950 - 72 - F Unit#: [id number] Location/Status: SPDIMAM/REG CLI Mnemonic/Ordering Site: [facility] Ordering Physician: JUSTINA DUMONT CNM [facility] Screening Digital - 10/07/23 - 1014 Report Status:Signed EXAM: [facility] Screening Digital EXAM DATE AND TIME: 10/07/2023 10:15 AM HISTORY: Screening. Mother had breast carcinoma at age 61. COMPARISON: 09/01/22, 08/30/21, 08/23/20, 07/26/19 TECHNIQUE: Bilateral digital breast tomosynthesis was performed in the CCand MLO projections. Computer aided detection with [employer] 3D 3.1was employed. TISSUE DENSITY: b. There are scattered areas of fibroglandular density. FINDINGS: No suspicious masses, grouped microcalcifications, or areas ofarchitectural distortion are seen. A small group of coarse, benign calcifications isagain seen in the posteromedial right breast. The skin and vascularity are unremarkable. IMPRESSION: Stable mammographic appearance of the breasts. No evidence of malignancyis seen. A negative mammogram in the presence of a clinically suspicious palpable abnormality does not preclude the possibility of malignancy or alter the indications for biopsy. BI-RADS: Category 2: Benign RECOMMENDATION(S): 1: Routine screening mammogram BILATERAL in 1 year. Dictating Physician: RAYRAY BASS MD Electronically Signed by: RAYRAY BASS MD Dic Date/Time: 10/07/23 1300 Sign date/Time: 10/07/23 1300 Justina Dumont CNM IMG BI PROCEDURES * [facility] DEXA AXIAL SKELETON (09/01/2022 11:53 AM EST) Anatomical Region Laterality Modality Mammography 09/01/2022 10:4 0 AM EST Narrative 09/01/2022 11:53 AM EST [facility] Diagnostic Imaging Department [address] [place] [address] Patient: ??ESTEFANIA MORALEZ ?/Age/Sex: 1950 - 71 - F Unit#: ??[id number] ? Location/Status: ??SPDIMAM/REG CLI ? Mnemonic/Ordering Site: ??MAMDEXAAX/SPMAM Ordering Physician: ??JUSTINA DUMONT CNM [facility] Dexa Axial Skeleton - 09/01/22 - 0692 HISTORY: ??The patient is a 71-year-old postmenopausal female with clinical concern for metabolic bone disease. FINDINGS: ??Dual energy x-ray absorptiometry of the lumbar spine and femurs is performed. The mean bone mineral density at L1-2 is 1.009 gm/cm2 which is 87% of that of young normals and 94% of that of age matched controls. This yields a T- score of -1.3 and a Z-score of -0.6 which is diagnostic of osteopenia. The mean bone mineral density of the femurs bilaterally is 0.911 gm/cm2 which is 90% of that of young normals and 102% of that of age matched controls. ??This yields a T-score of -0.8 and a Z-score of 0.1 and there is therefore no evidence of osteoporosis or osteopenia here. ??However, the T-score of the right femoral neck is -1.4 which is diagnostic of osteopenia. IMPRESSION: 1. Osteopenia. 2. FRAX analysis yields a 10-year probability of major osteoporotic fracture of 15.4% and a 10-year probability of hip fracture of 2.2%. Code 30920 Dictating Physician: ??LAURIE QUINTEROS MD Electronically Signed by: ??LAURIE QUINTEROS MD Dic Date/Time: ??09/01/22 1152 Sign date/Time: ??09/01/22 1153 Procedure Note Laurie Quinteros MD - 10/29/2023 [facility] Diagnostic Imaging Department [address] [place] [address] Patient: ESTEFANIA MORALEZ Anel ZuñigaB./Age/Sex: 1950 - 71 - F Unit#: [id number] Location/Status: [facility] Ordering Physician: JUSTINA DUMONT CNM [facility] Dexa Axial Skeleton - 09/01/22 - 0531 HISTORY: The patient is a 71-year-old postmenopausal female withclinical concern for metabolic bone disease. FINDINGS: Dual energy x-ray absorptiometry of the lumbar spine and femursis performed. The mean bone mineral density at L1-2 is 1.009 gm/cm2 which is87% of that of young normals and 94% of that of age matched controls. This yieldsa T- score of -1.3 and a Z-score of -0.6 which is diagnostic of osteopenia. The mean bone mineral density of the femurs bilaterally is 0.911 gm/mb7gsnks is 90% of that of young normals and 102% of that of age matched controls.This yields a T-score of -0.8 and a Z-score of 0.1 and there is therefore noevidence of osteoporosis or osteopenia here. However, the T-score of the rightfemoral neck is -1.4 which is diagnostic of osteopenia. IMPRESSION: 1. Osteopenia. 2. FRAX analysis yields a 10-year probability of major osteoporoticfracture of 15.4% and a 10-year probability of hip fracture of 2.2%. Code 18186 Dictating Physician: LAURIE QUINTEROS MD Electronically Signed by: LAURIE QUINTEROS MD Dic Date/Time: 09/01/22 1152 Sign date/Time: 09/01/22 1153 Justina Dumont [facility] IM BI PROCEDURES from Last 3 Months or Most Recently Relevant to Health Maintenance Care Teams Contour Band Saw Operator Vertical Relationship Specialty Start Date End Date Darby You MD PCP - General Internal Medicine 11/09/17
--- OUTSIDE RECORDS SUMMARY | 2024-10-26 12:35 | XMS_ITS | Continuity of Care Document ---
Author Organization [facility] Address [address] [place] [address]- Care Team Providers Care Artists' Model Name Role Phone Richar DOCTOR OF RADIOLOGY, Caridad Carroll Primary Care Physician Encounter [facility] Date(s): 09/19/24 - 10/19/24 [facility] [address] [place] [address]- Encounter Type: Triage Allergies, Adverse Reactions, Alerts Substance Criticality Severity Reaction Reaction Severity Status codeine Active erythromycin Active penicillins Active Demerol HCl Active Paxlovid Vomiting Active guaiFENesin Stomach pain Activ e Immunizations Given and Recorded Vaccine Date Status Refusal Reason tetanus/diphtheria/pertussis, acel(Tdap) 04/03/24 Given influenza virus vaccine, inactivated 07/06/23 Saulo rded influenza virus vaccine, inactivated 06/18/22 Saulo rded influenza virus vaccine, inactivated 07/11/19 Saulo rded influenza virus vaccine, inactivated 06/14/18 Saulo rded influenza virus vaccine, inactivated 07/30/17 Saulo rded influenza virus vaccine, inactivated 07/07/17 Saulo rded influenza virus vaccine, inactivated 07/07/16 Saulo rded SARS-CoV-2 mRNA ([id number]) vax 03/11/22 Recorded SARS-CoV-2 (COVID-19) mRNA BNT-162b2 vac 02/25/22 Recorded SARS-CoV-2 (COVID-19) mRNA BNT-162b2 vac 07/28/21 Recorded SARS-CoV-2 (COVID-19) mRNA BNT-162b2 vac 06/18/21 Recorded SARS-CoV-2 (COVID-19) mRNA BNT-162b2 vac 12/26/20 Recorded SARS-CoV-2 (COVID-19) mRNA BNT-162b2 vac 12/05/20 Recorded Influenza Virus Vaccine (oldterm) 07/17/21 Recorde d zoster vaccine, inactivated 09/30/20 Recorded zoster vaccine, inactivated 07/11/19 Recorded zoster vaccine, inactivated 04/17/19 Recorded pneumococcal 13-valent vaccine 07/07/16 Recorded pneumococcal 23-valent vaccine 08/13/15 Recorded pneumococcal 23-valent vaccine 07/11/15 Recorded Zoster Vaccine Live 07/19/15 Recorded Medications amLODIPine 5 mg oral tablet 1 tablet, By Mouth, Daily, # 90 tablet, 2 Refills, Maintenance, 05/22/24 4:18:00 PM EDT, [id number], 173, cm, 04/21/24 15:49:00 EDT, Height, 93, kg, 04/03/24 0:52:00 EDT, Dry Weight Start Date: 05/22/24 Status: Ordered Quantity: 90.0 Unit: tablet Repeat number: 1 atorvastatin 20 mg oral tablet 1 tablet, By Mouth, Daily, # 90 tablet, 1 Refills, Maintenance, 09/28/24 10:04:00 PM EST, [id number], 173, cm, 06/20/24 17:22:00 EDT, Height, 93, kg, 04/03/24 0:52:00 EDT, Dry Weight Start Date: 09/28/24 Status: Ordered Quantity: 90.0 Unit: tablet Repeat number: 1 betamethasone topical dipropionate 0.05% lotion 1 application, Topically, 2 times a day, # 60 mL, 0 Refills, Maintenance, 04/21/24 3:48:00 PM EDT, Lotion, Partial fill upon patient request if the prescription is for a schedule II opioid drug. Start Date: 04/21/24 Status: Ordered Quantity: 60.0 Unit: mL Repeat number: 1 doxycycline hyclate 100 mg oral capsule See Instructions, 1 capsule By Mouth one hour before dental procedure prn, # 10 each, 0 Refills, Maintenance, 09/19/24 2:02:00 PM EST, Capsule, [facility]/pharmacy #[id number], Partial fill upon patient request if the prescription is for a schedule II opioid drug., 173, cm, 06/20/24 17:22:00 EDT, Height, 93, kg, 04/03/24 0:52:00 EDT, Dry Weight Start Date: 09/19/24 Status: Ordered Quantity: 10.0 Unit: each Repeat number: 1 Indication: Presence of unspecified orthopedic joint implant Estradiol 0 Refills, Maintenance, 04/21/24 3:47:00 PM EDT, Partial fill upon patient request if the prescription is for a schedule II opioid drug. Start Date: 04/21/24 Status: Ordered Repeat number: 1 estradiol 0.1 mg/g vaginal cream INSERT 1 GM INTO THE VAGINA AT BEDTIME TWICE WEEKLY Start Date: 04/21/24 Status: Ordered Repeat number: 1 fluocinolone 0.01% otic solution PLACE 1 DROP INTO BOTH EARS TO EAR RASH 1 TO 2 TIMES A DAY NEEDED Start Date: 04/21/24 Status: Ordered Repeat number: 1 levothyroxine 0.112 mg oral tablet 1 tablet, By Mouth, Daily, # 90 tablet, 1 Refills, Maintenance, 05/22/24 4:18:00 PM EDT, [id number], 173, cm, 04/21/24 15:49:00 EDT, Height, 93, kg, 04/03/24 0:52:00 EDT, Dry Weight Start Date: 05/22/24 Status: Ordered Quantity: 90.0 Unit: tablet Repeat number: 1 lisinopril 40 mg oral tablet 1 tablet, By Mouth, Daily, # 90 tablet, 3 Refills, Maintenance, 02/13/24 10:38:00 AM EDT, [id number], 176, cm, 11/23/23 8:40:00 EST, Height Start Date: 02/13/24 Status: Ordered Quantity: 90.0 Unit: tablet Repeat number: 1 LORazepam 0.5 mg oral tablet See Instructions, 1 TABLET BY MOUTH DAILY NEEDED FOR ANXIETY, # 30 tablet, 0 Refills, Maintenance, 09/19/24 12:59:00 PM EST, [facility]/pharmacy #[id number], 173, cm, 06/20/24 17:22:00 EDT, Height, 93, kg, 04/03/24 0:52:00 EDT, Dry Weight Start Date: 09/19/24 Status: Ordered Quantity: 30.0 Unit: tablet Repeat number: 1 LORazepam 0.5 mg oral tablet See Instructions, TAKE 1 TABLET BY MOUTH DAILY,X30 DAYS, NEEDED FOR ANXIETY, # 30 tablet, 0 Refills, Maintenance, 05/10/24 9:54:00 AM EDT, [facility]/pharmacy #[id number], 173, cm, 04/21/24 15:49:00 EDT, Height,93, kg, 04/03/24 0:52:00 EDT, Dry Weight Start Date: 05/10/24 Status: Ordered Quantity: 30.0 Unit: tablet Repeat number: 1 LORazepam 0.5 mg oral tablet 1 tablet = 0.5 mg, By Mouth, Daily at bedtime, # 30 tablet, 2 Refills, Maintenance, 05/18/24 10:57:00 AM EDT, Tablet, [facility]/pharmacy #[id number], Partial fill upon patient request if the prescription is for aschedule II opioid drug., 173, cm, 04/21/24 15:49:00 EDT, Height, 93, kg, 04/03/24 0:52:00 EDT, DryWeight Start Date: 05/18/24 Status: Ordered Quantity: 30.0 Unit: tablet Repeat number: 3 Problem List Condition Confirmation Course Effective Dates Status H ealth Status Informant Abnormal radiologic density Confirmed Active Asthma Confirmed Active Cholelithiasis Confirmed Active COVID-19 Confirmed Active DDD (degenerative disc disease), lumbar Confirmed Active External hemorrhoids Confirmed Active First degree AV block Confirmed Active Hemarthrosis involving knee joint Confirmed Active Status post right knee replacement Confirmed Active Hyperlipidemia Confirmed Active HTN (hypertension) Confirmed Active Hypothyroidism Confirmed Active IFG (impaired fasting glucose) Confirmed Active Obese class I Confirmed Active HARMONY on CPAP Confirmed Active Primary osteoarthritis of right knee Confirmed Active Right knee pain Confirmed Active Pneumonia Confirmed Active Social History Social History Type Response Smoking Status Former smoker, quit more than 30 days ago entered on: 04/07/21 Sex Female Sex Representation Female (finding) Patient Care team information Care Team Personnel Name: Sujata Wyatt MA Position: [facility] AMB MA Member Role: Lifetime Consulting Physician Name: Anita Silva Position: [facility] Outreach Member Role: Lifetime Consulting Physician Name: Molly Mcnamara RN Position: [facility] AMB Nurse Member Role: Primary Care Nurse Name: Caridad Mcqueen NP Position: [facility] PCO Associate Professional Member Role: PCP Address: [address] [place] [id number] Telecom: Care Team Related Persons Name: RUTH HAMMOND Name: BERTIN OLIVER Name: VIJAYA WATERMAN Name: MANFRED CASTILLO Name: MANFRED CASTILLO Name: ASHTYN FLETCHER Name: ASHTYN HERNANDEZ Name: ASHTYN HERNANDEZ Insurance Providers Guarantor name: ESTEFANIA HAMMOND Health Plan Information #: 1 Payer: ZENAIDA Member Number: NA Policy Number: NA Group Number: NA
== END 2024-10-26 10:14 | disposition home or self-care (01) ==
PROVIDERS: PCP Nurse Practitioner Family; Visit Provider Hospitalist
DX: J45.50 Severe persistent asthma, uncomplicated (principal); G47.33 Obstructive sleep apnea (adult) (pediatric); J30.1 Allergic rhinitis due to pollen; R91.8 Other nonspecific abnormal finding of lung field; R06.00 Dyspnea, unspecified
CPT/HCPCS: 99214

== ENCOUNTER 2025-01-26 | Outpatient (REF) | payer MEDICARE, SELFPAY | END 2025-01-26 00:01 | disposition home or self-care (01) | LOC: CF | PROVIDERS: PCP Nurse Practitioner Family; Visit Provider Hospitalist | DX: J45.50 Severe persistent asthma, uncomplicated (principal); R06.00 Dyspnea, unspecified; G47.33 Obstructive sleep apnea (adult) (pediatric); J30.1 Allergic rhinitis due to pollen; J40 Bronchitis, not specified as acute or chronic; R91.8 Other nonspecific abnormal finding of lung field; Z99.89 Dependence on other enabling machines and devices | CPT/HCPCS: 99212 ==

== ENCOUNTER 2025-01-26 13:05 | Outpatient (AMB) | payer MEDICARE, SELFPAY ==
[2025-01-26 13:09] VITALS: BP 104/50; PULSE 90; O2SAT 93; BMI 31.3
--- NOTE | 2025-01-26 13:09 | A.OFFVIS_ITS ---
Vital Signs 01/26/25 13:09 Height 5 ft 9 in Weight 211 lb 10.3 oz BMI 31.3 BP 104/50 L Blood Pressure Location Lt brachial Position Sitting Pulse 90 Pulse Source Pulse Oximeter Pulse Oximetry (%) 93 Oxygen Delivery Method Room Air Intake Visit Reasons: Asthma Hot Saw Operator Required: No Accompanied by: Self / Same As Patient Allergies codeine Allergy (Severe, Verified 01/26/25 13:12) Vomiting erythromycin base Allergy (Severe, Verified 01/26/25 13:12) Hives guaifenesin Allergy (Severe, Verified 01/26/25 13:12) Hives meperidine [From Demerol] Allergy (Severe, Verified 01/26/25 13:12) Tachycardia Penicillins Allergy (Severe, Verified 01/26/25 13:12) Hives fluticasone furoate [From Trelegy Ellipta] Allergy (Intermediate, Verified 01/26/25 13:12) Rash, Hives umeclidinium [From Trelegy Ellipta] Allergy (Intermediate, Verified 01/26/25 13:12) Rash, Hives vilanterol [From Trelegy Ellipta] Allergy (Intermediate, Verified 01/26/25 13:12) Rash, Hives nitrofurantoin [From Macrobid] Adverse Reaction (Intermediate, Verified 01/26/25 13:12) Nausea nirmatrelvir [From Paxlovid] Adverse Reaction (Verified 01/26/25 13:12) Abdominal Pain ritonavir [From Paxlovid] Adverse Reaction (Verified 01/26/25 13:12) Abdominal Pain HPI Comments Details: The patient is a 74 y/o woman with known asthma in addition to pulmonary nodules. She did recently have a CT scan of the chest at [facility] which reviewed demonstrating stable pulmonary nodules. Still the patient is complaining of left-sided chest discomfort. Discomfort appears to be intermittent lasting between seconds to minutes. She describes it as an ache. It is not reproducible. It does not radiate. We did review the CT scan of the chest again and there is no clear explanation for the chest discomfort. With other significant past medical history of heart disease the patient should have complete cardiac evaluation. The patient also has been using QVAR for her asthma. Still been complaining of shortness of breath and coughing. We did check her hypersensitivity panel in addition to her eosinophil count and IgE. No significant abnormalities noted. Therefore, we will optimize his therapy with the addition of a long-acting beta agonist. However, the patient has had significant muscle spasms in the past which we have to monitor. 03/31/2023 the patient is here for a pulmonary follow-up visit. Overall from a respiratory status the patient is doing very well. The addition of the Daliresp has been helpful. She did start with the 250 mcg dose and then increase it to 500 mcg. She is still tolerating it well. Did have some diarrhea and GI symptoms but appear to be little better at this time. She has also had some weight loss which is also helpful for her respiratory status. Did Dupixent still continues to be affecting beneficial. She did undergo her knee surgery. Surgery went well. But, after several months she started developing hemarthrosis and now being followed closely by a specialist out of [place] because of the significant recurrent bloody effusions and pain. She does continue to use her CPAP. CPAP therapy continues to be affecting beneficial. She is using right now a nasal cradle but she is wondering if it nasal pillow will be more effective. I do believe the P 10 mask be very effective in beneficial and easy to use. 08/03/2024 the patient is here for a pulmonary follow-up visit. Since we last spoke the patient has been noticing increasing wheezing. She has been Dupixent now for more than 2 years. Initially she had no wheezing whatsoever. Now that she is noticing some wheezing is surprise there. Explained to her that there may be other triggers that may be affecting her breathing. In addition to that she has noticed some issues with her eyes where she has had dry eyes in addition to stye. Denies any evidence of any conjunctivitis. She understands Dupixent may be a culprit resulting increasing eye issues. If she continues to have issues that are concerning then we can always consider switching her Dupixent to a different agent. She is reluctant to do that though because it Dupixent is been so helpful for her breathing. She also was concerned that her oxygen was little bit low today 93% on room air. We did go for a walking oximetry today oxygen did indeed decrease the drip% with activity. With deep breathing did improve to 97%. Therefore, we talked about working on deep breathing exercises. In the meantime she is going to have a chest x-ray. When she comes back in 6 months will have her get pulmonary function studies. Will also provide the patient with a nebulizer that she can use daily to help her with her br onchospasms and wheezing. If the patient has any issues prior to that she will call if I see any abnormalities in the x-ray I will let her know otherwise will see her after her breathing studies in 6 months. 10/26/2024 the patient is here for a pulmonary follow-up visit. The patient has been struggling because her Dupixent is no longer covered. She does have significant asthma. 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 She seems to be tolerating it. She took her last dose of Dupixent. Now will see what happens with her symptoms . Although right now she does have some wheezing on exam so therefore symptoms will likely worsen in a few weeks once he Dupixent wears off. The patient does have severe persistent asthma she has responded very well to biologics. Will go ahead and recheck her blood work including a CBC with differential to assess her eosinophils and also an IgE level. Once we have those levels we can assess to see if she will benefit from a different type of biologic. We can try to see if we can get better coverage to make sure the patient can financially get the medication. In the meantime will switch her Arnuity to Wixela to have some long-acting beta effect. The patient will return in 3 months. If she has any issues prior to that she will call for an earlier assessment. Hopefully we can get her back on biologics soon. The patient also has underlying sleep apnea. She does have CPAP. 01/26/2025 the patient is here for pulmonary follow-up visit. She has been sick now for a few weeks. Initially she went to an urgent care after being exposed to sick contact at up been smoking and was given a course of prednisone and also doxycycline. She did not really feel much better. She did call our office and we did send another course of prednisone and also Levaquin. She did not have any adverse effects from the Levaquin which is reassuring. And now she is finishing up. Her cough is better her breathing is better overall. She feels very tired and weak and fatigued. She is concerned about those symptoms. Her blood pressure is also on the low side. She does take 2 blood pressure m edications. She did have blood work with her primary care doctor I do not have those results. She will try to look come up but digits not available to us. She is going to make sure the review them and make sure she talks to her primary care doctor. Her respiratory exam is reassuring hear any wheezing or crackles. I did give her an x-ray form that she can do an x-ray if she is not better by ne xt week. As far as the prednisone she should continue to taper off. The patient did start Dupixent. Dupixent will start working well for her as did did in the past. In the meantime she does not feel like the Wixela is helping much supple switch over to Breztri twice a day which will be a better medication for her. [facility] Medical History (Updated 01/28/25 @ 18:14 by Og Oliveira MD) Asthma HARMONY (obstructive sleep apnea) Cough Allergic rhinitis Dyspnea Asthma-COPD overlap syndrome Pulmonary nodules Family History Other HTN (hypertension) Social History Patient Tobacco Use Status: Former Tobacco user Tobacco use type: Cigarette Years Smoked: 18 years Review of Systems Const Denies chills, Reports fatigue, Denies fever(s), Denies weight gain and Denies weight loss Eyes Reports as per HPI, Reports dry eyes, Reports irritation and Reports itchy eyes ENT Denies dizziness, Denies lip swelling and Denies tongue swelling Card Denies chest pain, Denies leg edema, Denies lightheadedness, Denies palpitations, Denies dyspnea on exertion, Denies orthopnea and Denies other Resp Reports chest congestion, Reports cough, Denies dyspnea on exertion and Reports wheezing GI Denies hematochezia and Denies change in stool character Musc Denies abnormal gait, Denies muscle weakness, Denies numbness, Denies radiating pain into limb and Denies tingling Neuro Denies abnormal gait, Denies dizziness, Denies numbness and Denies tingling Psych Denies no additional complaints Endo Reports fatigue and Denies palpitations Riaz/Lymph Denies easy bleeding and Denies lymphadenopathy Aller/Immun Reports itchy eyes, Denies lip swelling, Denies tongue swelling and Reports wheezing Physical Exam Vital Signs: Last Vital Signs Pulse 90 01/26/25 13:09 BP 104/50 L 01/26/25 13:09 Pulse Ox 93 01/26/25 13:09 Oxygen Delivery Method Room Air 01/26/25 13:09 BMI result Body Mass Index 31.3 Const General: alert Neck Neck: Yes normal visual inspection, Yes full ROM and Yes no lymphadenopathy Chest Chest palpation & inspection: normal inspection of the chest Resp Effort & Inspection: No prolonged expiratory phase Auscultation: no rhonchi, no wheezes and diminished lung sounds Cardio Rate: regular rate Rhythm: regular rhythm Heart sounds: S1 normal heart sound present and S2 normal heart sound present GI Palpation (GI): Soft to palpation and nontender Auscultation: normal bowel sounds Skin General skin exam: rashes and/or lesions noted Assessment & Plan Assessment & Plan (1) Asthma: Code(s): J45.909 - Unspecified asthma, uncomplicated Category: Medical Qualifiers: Asthma complication type: uncomplicated Asthma persistence: persistent Asthma severity: severe Qualified Code(s): J45.50 - Severe persistent asthma, u ncomplicated (2) HARMONY (obstructive sleep apnea): Code(s): G47.33 - Obstructive sleep apnea (adult) (pediatric) Category: Medical (3) Allergic rhinitis: Code(s): J30.9 - Allergic rhinitis, unspecified Category: Medical Qualifiers: Allergic rhinitis seasonality: non-seasonal Allergic rhinitis trigger: pollen Qualified Code(s): J30.1 - Allergic rhinitis due to pollen (4) Pulmonary nodules: Comment: stable based on CT chest 03/17 Code(s): R91.8 - Other nonspecific abnormal finding of lung field Category: Medical (5) Dyspnea: Comment: better Code(s): R06.00 - Dyspnea, unspecified Category: Medical Qualifiers: Dyspnea type: dyspnea on exertion Qualified Code(s): R06.00 - Dyspnea, unspecified (6) Bronchitis: Code(s): J40 - Bronchitis, not specified as acute or chronic Category: Medical Plan restarted Dupixent complete Prednisone complete Levaquin GONZALO as needed stop Wixela start Breztri BID Needs a nebulizer for albuterol APAP CXR if no better Follow-up in 4-6 months Orders: Orders XR chest 2V 01/26/25 J45.50 - Severe persistent asthma, uncomplicated Medications: New hczlfmeccw-gzdwnoft-vztjzflcli 160-9-4.8 mcg/actuation (Breztri Aerosphere) 2 inhalations inhalation BID 30 days 10.7 grams 6RF Coding Level of Care Code Est Pt Level 4 (26960) Complex EM visit Add On G2211 Diagnoses Severe persistent asthma without complication J45.50 Asthma complication type: uncomplicated Asthma persistence: persistent Asthma severity: severe HARMONY (obstructive sleep apnea) G47.33 Non-seasonal allergic rhinitis due to pollen J30.1 Allergic rhinitis seasonality: non-seasonal Allergic rhinitis trigger: pollen Pulmonary nodules R91.8 Dyspnea on exertion R06.00 Dyspnea type: dyspnea on exertion Bronchitis J40 Time Spent (min) 16
--- OUTSIDE RECORDS SUMMARY | 2025-01-26 13:25 | XMS_ITS | Clinical Summary ---
Author Organization [facility] Address [address] [place] [id number] Care Team Providers Care Clamp Forklift Operator Name Role Phone Unknown Primary Care Provider [phone] Allergies Active Allergy Reactions Criticality Noted Date Comments Codeine GI Intolerance/Nausea/Vomiting Low 05/18/2023 Meperidine Palpitations Medium 05/18/2023 Erythromycin Swelling Medium 05/18/2023 Nitrofurantoin GI Intolerance/Nausea/Vomiting Low 05/18/2023 Nirmatrelvir-Ritonavir GI Intolerance/Nausea/Vomiting Low 05/18/2023 Penicillin G Benzathine Swelling Medium 05/18/2023 Medications albuterol (PROVENTIL HFA; VENTOLIN HFA) 108 (90 [...] total) by mouth daily. 09/30/2021 Active lisinopril (PRINIVIL,ZeSTRI L) 40 MG tablet Take 1 tablet (40 [...] (two) times a week. Active Vitamin D3 (CHOLECALCIFEROL ) 50 MCG (2000 UT) tablet Take 1 [...] Years Used Date Smoking Tobacco: Never Assessed Comments Unknown Sex and Gender Information Value Date Recorded Sex Assigned at Female 05/19/2023 11:32 AM EDT Legal Sex Female 12:07 PM EDT Gender Identity Female 05/19/2023 11:32 AM [...] of 2) 1968 Mammogram 1989 Colonoscopy 1994 DXA Bone Density (Females,Ag es 65 and older) 2014 Influenza Vaccine 04/27/2024 07/06/2023 RSV Vaccine 60 years and old er and Patients (1 - 1-dose 75+ series) 2024 Hepatitis B Vaccines Aged Out No long er eligible based on patient's age to complete this topic Medical Devices Implanted Type Area Corrections Caseworker Device Identifier Shelf Expiration Date Model / Serial / Lot S220gh Sphere Embolization Ylw Embosphere 100-300um Trisacryl Geltn - [id number] Implanted:Qty: 1 on 05/19/2023 by Frankie Marie DO at [facility] Cardiac N/A: Arterial [employer] [id number] 01/11/2026 S220GH / / [id number] S420 Sphere Embolization Blue Embosphere 300-500um Trisacryl - [id number] Implanted:Qty: 1 on 05/19/2023 by Frankie Marie DO at [facility] Cardiac N/A: Arterial [employer] [id number] 12/20/2025 [id number] / / [id number] Insurance * Guarantor: Whitney Moralez Account Type Relation to Patient Date of Phone Billing Address Personal/Family Self [address] [place] [address] [employer] MEDICARE OUT OF NETWORK Care Teams Clamp Forklift Operator Relationship Specialty Start Date End Date Unknown Unknow Provider Address PCP - General 05/19/23
--- OUTSIDE RECORDS SUMMARY | 2025-01-26 13:25 | XMS_ITS | Clinical Summary ---
Author Organization [address] Address [address] [place] [id number] Phone Care Team Providers Care Implementation Advisor Name Role Phone Caridad Mcqueen Primary Care Provider [phone] Allergies Active Allergy Reactions Criticality Noted Date [...] Tetanus adult (Td q 10,TDAP once) 1969 Lipid disorder screening 1989 Colon cancer screening, Colonoscopy 1994 Diabetes screening 1994 Pneumococcal Vaccine (50+ ye ars) (1 of 1 - PCV) 12/31/1999 Shingles vaccine (Shingrix) (1 of 2 - Shingrix (RZV) 2 Dose Standard Series) 12/31/1999 Osteoporosis screening (bone density) 2014 Covid-19 vaccine series ( - 2023- season) 2024 RSV Immunization (1 - 1-dose 75+ series) 2024 Influenza vaccine 05/28/2025 Breast cancer screening Discontinued Cervical cancer screening Discontinued Meningococcal Vaccine Aged Out No charla lópez eligible based on patient's age to complete this topic Insurance * Guarantor: Whitney Moralez Account Type Relation to Patient Date of Phone Billing Address Personal/Family Self 1950 [address] [place] [address] MEDICARE [place] [facility] [place] Guarantor: Whitney Moralez Account Type Relation to Patient Date of Phone Billing Address Personal/Family Self 1950 [address] [address] MEDICARE MANAGED [place] * Guarantor: Whitney Moralez Account Type Relation to Patient Date of Phone Billing Address Personal/Family Self 1950 [address] [address] MEDICARE [place] [facility] [place] Care Teams Implementation Advisor Relationship Specialty Start Date End Date Caridad Mcqueen [address] [place] [address] PCP - General 03/26/19
--- OUTSIDE RECORDS SUMMARY | 2025-01-26 13:25 | XMS_ITS | Continuity of Care Document ---
Author Organization [facility] Address [address] [place] [id number]- Care Team Providers Care Rouge Presser Name Role Phone Richar ZHANG, Caridad Carroll Primary Care Physician Encounter [facility] Date(s): 12/26/24 - 01/25/[address] [address]- Attending Physician: Sharmila Hernandez Admitting Physician: Sharmila Hernandez Referring Physician: Admtr, [id number] Encounter Type: Triage Allergies, Adverse Reactions, Alerts Substance Criticality Severity Reaction Reaction Severity Status codeine Active erythromycin Active penicillins Active Demerol HCl Active guaiFENesin Stomach pain Activ e Paxlovid Vomiting Active Immunizations Given and Recorded Vaccine Date Status Refusal Reason influenza virus vaccine, inactivated 07/26/24 Saulo rded influenza virus vaccine, inactivated 07/06/23 Saulo rded influenza virus vaccine, inactivated 06/18/22 Saulo rded influenza virus vaccine, inactivated 07/11/19 Saulo rded influenza virus vaccine, inactivated 06/14/18 Saulo rded influenza virus vaccine, inactivated 07/30/17 Saulo rded influenza virus vaccine, inactivated 07/07/17 Saulo rded influenza virus vaccine, inactivated 07/07/16 Saulo rded tetanus/diphtheria/pertussis, acel(Tdap) 04/03/24 Given SARS-CoV-2 mRNA (ngwfecg-rpoh-bvtxi) vax 03/11/22 Recorded SARS-CoV-2 (COVID-19) mRNA BNT-162b2 [...] Daily, # 90 tablet, 1 Refills, Maintenance, 12/22/24 3:12:00 PM EDT, [id number], 173, cm, 10/31/24 11:15:00 EST, Height, 93, kg, 04/03/24 0:52:00 EDT, Dry Weight Start Date: 12/22/24 Status: Ordered Quantity: 90.0 Unit: tablet Repeat number: 1 Arnuity Ellipta 100 mcg inhalation powder 0 Refills, Maintenance, 10/31/24 11:14:00 AM EST, Partial fill upon patient request if the prescription is for a schedule II opioid drug. Start Date: 10/31/24 Status: Ordered Repeat number: 1 atorvastatin 20 mg oral tablet 1 tablet, By Mouth, Daily, # 90 tablet, 1 Refills, Maintenance, 09/28/24 10:04:00 PM EST, [id number], 173, cm, 06/20/24 17:22:00 EDT, Height, 93, [...] Refills, Maintenance, 09/19/24 2:02:00 PM EST, Capsule, [facility]/pharmacy #[id number], Partial fill upon patient request if [...] Daily, # 90 tablet, 1 Refills, Maintenance, 11/15/24 12:24:00 PM EST, [facility] [id number], 173, cm, 10/31/24 11:15:00 EST, Height, 93, kg, 04/03/24 0:52:00 EDT, Dry Weight Start Date: 11/15/24 Status: Ordered Quantity: 90.0 Unit: tablet Repeat number: 1 lisinopril 40 mg oral tablet 1 tablet, By Mouth, Daily, # 90 tablet, 3 Refills, Maintenance, 02/13/24 10:38:00 AM EDT, [facility] [address]97, 176, cm, 11/23/23 8:40:00 EST, Height Start Date: 02/13/24 Status: Ordered Quantity: 90.0 Unit: tablet Repeat number: 1 LORazepam 0.5 mg oral tablet 1 tablet, By Mouth, Daily, PRN NEEDED FOR ANXIETY, # 30 tablet, 0 Refills, Maintenance, 12/27/24 6:08:00 AM EDT, [facility]/pharmacy #[id number], 173, cm, 10/31/24 11:15:00 EST, Height, 93, kg, 04/03/24 0:52:00 EDT, Dry Weight Start Date: 12/27/24 Status: Ordered Quantity: 30.0 Unit: tablet Repeat number: 1 Problem List Condition Confirmation Course Effective Dates [...] Team Personnel Name: Sujata Wyatt MA Position: [facility] MA Member Role: Lifetime Consulting Physician Name: Anita Silva Position: [facility] Outreach Member Role: Lifetime Consulting Physician Name: Molly Mcnamara RN Position: [facility] Nurse Member Role: Primary Care Nurse Name: Caridad Mcqueen NP Position: [facility] PCO Associate Professional Member Role: PCP Address: [address] [place] [address]- Telecom: Care Team Related Persons Name: RUTH HAMMOND Name: BERTIN OLIVER Name: VIJAYA WATERMAN Name: MANFRED CASTILLO Name: MANFRED CASTILLO Name: ASHTYN FLETCHER Name: ASHTYN HERNANDEZ Name: ASHTYN HERNANDEZ Insurance Providers Guarantor name: [facility] Information #: 1 Payer: DARRON FREEMAN PPO Member Number: NA Policy Number: NA Group Number: NA
--- OUTSIDE RECORDS SUMMARY | 2025-01-26 13:25 | XMS_ITS | Clinical Summary ---
Author Organization [facility] [place] [address] Care Team Providers Care Manager Wound Care Name Role Phone Darby You MD Primary Care Provider [phone] Social History Tobacco Use Types Packs/Day Years Used Date Smoking Tobacco: Former Cigarettes Smokeless Tobacco: Never Alcohol Use Standard Drinks/Week Comments Yes 0 (1 standard drink = 0.6 oz pur e alcohol) Comments Unknown Sex and Gender Information Value Date Recorded Sex Assigned at Not on file Legal Sex Female 11:11 PM EST Gender Identity Not on file Sexual Orientation Not on file Obstetrics History Plan of Treatment Health Maintenance Due Date Last Done Comments DTaP,Tdap,and Td Vaccines (1 - Tdap) 1968 Pneumococcal Vaccine: 50+ Years (1 of 2 - PCV) 1968 Zoster Vaccines (1 of 2) 12/31/1999 Colorectal Cancer Screening: Colonoscopy 08/30/2022 Depression Screening 08/30/2022 Falls Risk Assessment 08/30/2022 Hepatitis C Screening 08/30/2022 Social Influencers of Health Screening 08/30/2022 COVID-19 Vaccine ( season) 2024 RSV Immunization Adult Patients (1 - 1-dose 75+ series) 2024 Influenza Vaccine (Season Ended) 2025 Osteoporosis Screening (Bone Density Screening) 09/01/2032 09/01/2022 Breast Cancer Screening Discontinued 10/07/19 24, 09/01/2022, 08/31/2021, Additional history exists HIB Vaccines Aged Out No longer eligi [...] patient's age to complete this topic Meningococcal B Vaccine Aged Out No l onger eligible based on patient's age to complete this topic RSV Immunization Patients Under 20 months Aged Out No longer eligible based on patient's age to complete this topic Varicella Vaccines Aged Out No longer eligible based on patient's age to complete this topic Procedures Procedure Name Priority Date/Time Associated Diagnosis Comments [facility] SCREENING DIGITAL Routine 10/07/2023 1:00 PM EST Encounter for screening mammogram for malignant neoplasm of breast [facility] DEXA AXIAL SKELETON Routine 09/01/2022 11:53 AM EST Unspecified menopausal and perimenopausal disorder from Last 3 Months or Most Recently Relevant to Health Maintenance Results * [facility] SCREENING DIGITAL (10/07/2023 1:00 PM EST) Anatomical Region Laterality Modality Mammography 10/07/2023 10:0 0 AM EST Narrative 10/07/2023 1:00 PM EST [facility] Diagnostic Imaging Department [address] [place], [place] [id number] Patient: ??WHITNEY MORALEZ ?/Age/Sex: 1950 - 72 - F Unit#: ??[id number] ? Location/Status: ??SPDIMAM/REG CLI ? Mnemonic/Ordering Site: ??DIGSC/SPMAM Ordering Physician: ??DALIUDMILA M CNM [facility] Screening Digital - 10/07/23 - 1014 Report Status:Signed EXAM: [facility] Screening Digital EXAM DATE AND TIME: 10/07/2023 10:15 AM HISTORY: ??Screening. Mother had breast carcinoma at age 61. COMPARISON: ??09/01/22, 08/30/21, 08/23/20, 07/26/19 TECHNIQUE: Bilateral digital breast tomosynthesis was performed in the CC and MLO projections. Computer aided detection with VTM 3D 3.1 was employed. TISSUE DENSITY: b. [...] mammogram BILATERAL in 1 year. Dictating Physician: ??EBONY BASS MD Electronically Signed by: ??EBOYN BASS MD Dic Date/Time: ??10/07/23 1300 Sign date/Time: ??10/07/23 1300 Procedure Note Ebony Bass MD - 05/15/2024 [facility] Diagnostic Imaging Department [address] [place] [address] Patient: WHITNEY MORALEZ /Age/Sex: 1950 72 - F Unit#: [id number] Location/Status: SPDIMAM/REG CLI Mnemonic/Ordering Site: [facility] Ordering Physician: LIUDMILA DUMONT CNM [facility] Screening Digital - 10/07/23 - 1014 Report Status:Signed EXAM: [facility] Screening Digital EXAM DATE AND TIME: 10/07/2023 10:15 AM HISTORY: Screening. Mother had breast carcinoma at age 61. COMPARISON: 09/01/22, 08/30/21, 08/23/20, 07/26/19 TECHNIQUE: Bilateral digital breast tomosynthesis was performed in the CCand MLO projections. Computer aided detection with VTM 3D 3.1was employed. TISSUE DENSITY: b. There [...] mammogram BILATERAL in 1 year. Dictating Physician: EBONY BASS MD Electronically Signed by: EBONY BASS MD Dic Date/Time: 10/07/23 1300 Sign date/Time: 10/07/23 1300 us Liudmila Dumont CNM IMG BI PROCEDURES Final Res ult * [facility] DEXA AXIAL SKELETON (09/01/2022 11:53 AM EST) Anatomical Region Laterality Modality Mammography 09/01/2022 10:4 0 AM EST Narrative 09/01/2022 11:53 AM EST [facility] Diagnostic Imaging Department [address] [place] [address] Patient: ??WHITNEY MORALEZ ?/Age/Sex: 1950 71 - F Unit#: ??[id number] ? Location/Status: ??SPDIMAM/REG CLI ? Mnemonic/Ordering Site: ??MAMDEXAAX/SPMAM Ordering Physician: ??LIUDMILA DUMONT CNM [facility] Dexa Axial Skeleton - 09/01/22 6723 HISTORY: ??The patient is a 71-year-old postmenopausal [...] probability of hip fracture of 2.2%. Code 34519 Dictating Physician: ??LAURIE QUINTEROS MD Electronically Signed by: ??LAURIE QUINTEROS MD Dic Date/Time: ??09/01/22 1152 Sign date/Time: ??09/01/22 1153 Procedure Note Laurie Quinteros MD - 10/29/2023 [facility] Diagnostic Imaging Department [address] [place] [address] Patient: ALICIAPATRICIAWHITNEY D.O.B./Age/Sex: 1950 71 - F Unit#: [id number] Location/Status: SPDIMAM/REG CLI [facility] Ordering Physician: LIUDMILA DUMONT CNM [facility] Dexa Axial Skeleton - 12/03/187 HISTORY: The patient is a 71-year-old postmenopausal [...] density of the femurs bilaterally is 0.911 gm/sv7twjaa is 90% of that of young normals [...] probability of hip fracture of 2.2%. Code 53277 Dictating Physician: LAURIE QUINTEROS MD Electronically Signed by: LAURIE QUINTEROS MD Dic Date/Time: 09/01/22 1152 Sign date/Time: 09/01/22 1153 Liudmila Dumont [facility] IMG BI PROCEDURES Final Res ult from Last 3 Months or Most Recently Relevant to Health Maintenance Care Teams Manager Wound Care Relationship Specialty Start Date End Date Darby You MD PCP - General Internal Medicine 11/09/17
== END 2025-01-26 13:37 | disposition home or self-care (01) ==
LOC: HO.HPS 13:06
PROVIDERS: PCP Nurse Practitioner Family; Visit Provider Hospitalist
DX: J45.50 Severe persistent asthma, uncomplicated (principal); G47.33 Obstructive sleep apnea (adult) (pediatric); J30.1 Allergic rhinitis due to pollen; R91.8 Other nonspecific abnormal finding of lung field; R06.00 Dyspnea, unspecified; J40 Bronchitis, not specified as acute or chronic
CPT/HCPCS: 99214; G2211

== ENCOUNTER 2025-01-31 15:26 | Outpatient (REF) | payer MEDICARE, SELFPAY ==
--- NOTE | ~2025-01-31 | XR_ITS ---
EXAMINATION: XR CHEST 2 VIEWS HISTORY: J45.50 - Severe persistent asthma, uncomplicated COMPARISON: Comparison is made with the prior examination dated 08/03/2024. FINDINGS: PA and lateral views of the chest are submitted. The lungs are expanded and clear. There is no pleural effusion, pneumothorax, or pulmonary vascular congestion. The heart is normal in size. The aorta is calcified. There is degenerative disc disease of the spine. XR/XR chest 2V IMPRESSION: No acute cardiopulmonary abnormality. Electronically signed by: Terry Hurst MD 01/31/2025 03:44 PM EDT
--- OUTSIDE RECORDS SUMMARY | 2025-01-31 16:20 | XMS_ITS | Clinical Summary ---
Author Organization [facility] [place] [address] Care Team Providers Care Insulator Apprentice Name Role Phone Darby You MD Primary Care Provider [phone] Social History Tobacco Use Types Packs/Day Years [...] Procedure Name Priority Date/Time Associated Diagnosis Comments [facility] SCREENING DIGITAL Routine 10/07/2023 1:00 PM EST Encounter for screening mammogram for malignant neoplasm of breast [facility] DEXA AXIAL SKELETON Routine 09/01/2022 11:53 AM EST Unspecified menopausal and perimenopausal disorder from Last 3 Months or Most Recently Relevant to Health Maintenance Results * [facility] SCREENING DIGITAL (10/07/2023 1:00 PM EST) Anatomical Region Laterality Modality Mammography 10/07/2023 10:0 0 AM EST Narrative 10/07/2023 1:00 PM EST [facility] Diagnostic Imaging Department [address] [place], [place] [id number] Patient: ??WHITNEY MORALEZ ?/Age/Sex: 1950 - 72 - F Unit#: ??[id number] ? Location/Status: ??SPDIMAM/REG CLI ? Mnemonic/Ordering Site: ??DIGSC/SPMAM Ordering Physician: ??DALIUDMILA M CNM [facility] Screening Digital - 10/07/23 - 1014 Report Status:Signed EXAM: [facility] Screening Digital EXAM DATE AND TIME: 10/07/2023 10:15 AM HISTORY: ??Screening. Mother had breast carcinoma at age 61. COMPARISON: ??09/01/22, 08/30/21, 08/23/20, 07/26/19 TECHNIQUE: Bilateral digital breast tomosynthesis was performed in the CC and MLO projections. Computer aided detection with Testive 3D 3.1 was employed. TISSUE DENSITY: b. [...] Physician: ??EBONY BASS MD Electronically Signed by: ??EBONY BASS MD Dic Date/Time: ??10/07/23 1300 Sign date/Time: ??10/07/23 1300 Procedure Note Ebony Bass MD - 05/15/2024 [facility] Diagnostic Imaging Department [address] [place] [address] Patient: WHITNEY MORALEZ /Age/Sex: 1950 72 - F Unit#: [id number] Location/Status: SPDIMAM/REG CLI Mnemonic/Ordering Site: [facility] Ordering Physician: LIUDMILA DUMONT CNM [facility] Screening Digital - 10/07/23 - 1014 Report Status:Signed EXAM: [facility] Screening Digital EXAM DATE AND TIME: 10/07/2023 10:15 AM HISTORY: Screening. Mother had breast carcinoma at age 61. COMPARISON: 09/01/22, 08/30/21, 08/23/20, 07/26/19 TECHNIQUE: Bilateral digital breast tomosynthesis was performed in the CCand MLO projections. Computer aided detection with Testive 3D 3.1was employed. TISSUE DENSITY: b. There [...] AM EST Narrative 09/01/2022 11:53 AM EST [facility] Diagnostic Imaging Department [address] [place] [address] Patient: ??WHITNEY MORALEZ ?/Age/Sex: 1950 71 - F Unit#: ??[id number] ? Location/Status: ??SPDIMAM/REG CLI ? Mnemonic/Ordering Site: ??MAMDEXAAX/SPMAM Ordering Physician: ??LIUDMILA DUMONT CNM [facility] Dexa Axial Skeleton - 09/01/22 3741 HISTORY: ??The patient is a 71-year-old postmenopausal [...] probability of hip fracture of 2.2%. Code 50915 Dictating Physician: ??LAURIE QUINTEROS MD Electronically Signed by: ??LAURIE QUINTEROS MD Dic Date/Time: ??09/01/22 1152 Sign date/Time: ??09/01/22 1153 Procedure Note Laurie Quinteros MD - 10/29/2023 [facility] Diagnostic Imaging Department [address] [place] [address] Patient: ALICIAPATRICIAWHITNEY D.O.B./Age/Sex: 1950 71 - F Unit#: [id number] Location/Status: SPDIMAM/REG CLI [facility] Ordering Physician: LIUDMILA DUMONT CNM [facility] Dexa Axial Skeleton - 12/03/180 HISTORY: The patient is a 71-year-old postmenopausal [...] density of the femurs bilaterally is 0.911 gm/ac6wjmsz is 90% of that of young normals [...] probability of hip fracture of 2.2%. Code 53214 Dictating Physician: LAURIE QUINTEROS MD Electronically Signed by: LAURIE QUINTEROS MD Dic Date/Time: 09/01/22 1152 Sign date/Time: 09/01/22 1153 Liudmila Dumont [facility] IMG BI PROCEDURES Final Res ult from Last 3 Months or Most Recently Relevant to Health Maintenance Care Teams Insulator Apprentice Relationship Specialty Start Date End Date Darby You MD PCP - General Internal Medicine 11/09/17
--- OUTSIDE RECORDS SUMMARY | 2025-01-31 16:20 | XMS_ITS | Clinical Summary ---
Author Organization [facility] Address [address] [place] [address] Care Team Providers Care Booster Pump Oiler Name Role Phone Unknown Primary Care Provider [phone] Allergies Active Allergy Reactions Criticality Noted Date [...] Density (Females,Ag es 65 and older) 2014 RSV Vaccine 60 years and old er and Patients (1 - 1-dose 75+ series) 2024 Influenza Vaccine 04/27/2025 07/06/2023 Hepatitis B Vaccines Aged Out No long er eligible based on patient's age to complete this topic Medical Devices Implanted Type Area Platen Press Feeder Device Identifier Shelf Expiration Date Model / Serial / Lot S220gh Sphere Embolization Ylw Embosphere 100-300um Trisacryl Geltn - [id number] Implanted:Qty: 1 on 05/19/2023 by Frankie Marie DO at [facility] Cardiac N/A: Arterial [employer] [id number] 01/11/2026 S220GH / / [id number] S420 Sphere Embolization Blue Embosphere 300-500um Trisacryl - [id number] Implanted:Qty: 1 on 05/19/2023 by Frankie Marie DO at [facility] Cardiac N/A: Arterial [employer] [id number] 12/20/2025 S420GH / / [id number] Insurance * Guarantor: Whitney Moralez Account Type Relation to Patient Date of Phone Billing Address Personal/Family Self 1950 [address] [address] [employer] MEDICARE OUT OF NETWORK Care Teams Booster Pump Oiler Relationship Specialty Start Date End Date Unknown Unknow Provider Address PCP - General 05/19/23
--- OUTSIDE RECORDS SUMMARY | 2025-01-31 16:20 | XMS_ITS | Clinical Summary ---
Author Organization [address] Address [address] [place] [phone] Phone Care Team Providers Care Potato Sorter Name Role Phone Caridad Mcqueen Primary Care Provider [phone] Allergies Active Allergy Reactions Criticality Noted Date [...] Personal/Family Self 1950 [address] [address] MEDICARE [place]NA[place] [facility] [place] Guarantor: Whitney Moralez Account Type Relation to Patient Date of Phone Billing Address Personal/Family Self 1950 [address] [address] MEDICARE MANAGED MISC * Guarantor: Whitney Moralez Account Type Relation to Patient Date of Phone Billing Address Personal/Family Self 1950 [address] [address] MEDICARE [place] [facility] Care Teams Potato Sorter Relationship Specialty Start Date End Date Caridad Mcqueen [address] [place] [address] PCP - General 03/26/19
== END 2025-01-31 15:27 | disposition home or self-care (01) ==
LOC: HO.XRAY 15:26
PROVIDERS: PCP Nurse Practitioner Family; Visit Provider Hospitalist
DX: J45.50 Severe persistent asthma, uncomplicated (principal)
CPT/HCPCS: 71046

== ENCOUNTER → 2025-01-31 15:29 | Outpatient (BNV) | payer MEDICARE, SELFPAY | PROVIDERS: PCP Nurse Practitioner Family; Visit Provider Radiology Diagnostic Radiology | DX: J45.50 Severe persistent asthma, uncomplicated (principal) | CPT/HCPCS: 71046 ==

== ENCOUNTER 2025-04-20 10:50 | Outpatient (REF) | payer MEDICARE, SELFPAY ==
[2025-04-20 07:42] VITALS: PULSE 77; O2SAT 96
--- OUTSIDE RECORDS SUMMARY | 2025-04-20 10:58 | XMS_ITS | Encounter Summary ---
Author Organization [facility] Address [address] [place] [address] [place] [phone] Phone Care Team Providers Care Critical Care Cns Name Role Phone Caridad Mcqueen BARIATRIC COORDINATOR Primary Care Provider + Encounter Details Date Type Department Care Team (Late st Contact Info) Description 06/08/2023 Procedure Pass [facility] MR Imaging, [place] [address] [place] [address] Social History Tobacco Use Types Packs/Day Years Used Date Smoking Tobacco: Never Smokeless Tobacco: Never Education Answer Date Recorded Are you interested in more education? Not on anshul e 06/08/2023 Are you concerned about learning? Not on file 06/08/2023 No 06/08/2023 No 06/08/2023 Digital Access Answer Date Recorded No 06/08/2023 No 06/08/2023 Reliable internet access at home? Not on file 06/08/2023 Device with a working camera? Not on file Comments Unknown Sex and Gender Information Value Date Recorded Sex Assigned at Female 06/04/2023 11:11 AM EDT Legal Sex Female 10:55 AM EDT Gender Identity Female 06/04/2023 11:11 AM EDT Sexual Orientation Straight 06/04/2023 11 :11 AM EDT documented as of this encounter Plan of Treatment Not on file documented as of this encounter Visit Diagnoses Not on filedocumented in this encounter Care Teams Critical Care Cns Relationship Specialty Start Date End Date Caridad Mcqueen NP [address] [place] [address] PCP - General Nurse Practitioner 06/04/23 documented as of this encounter Additional Source Comments The information contained in this document represents components of the legal health record. It is not the complete legal health record.[facility]
--- OUTSIDE RECORDS SUMMARY | 2025-04-20 10:58 | XMS_ITS | Patient Health Record ---
Author Organization [facility] Address [address] [facility] [place] [address] Care Team Providers Care Welding Machine Operator Arc Name Role Phone Armida DAVID, Titi Primary Care Provider Unavaila ble Black, Josie Unavailable [phone] Allergies Allergen (clinical drug ingredient) Drug/Non Drug Allergy documented on EMR Reaction Allergy Type Onset Date Status meperidine Demerol palpitations Drug Allergy Act lan Penicillin hives Drug Allergy Active erythromycin erythromycin hives Drug Allergy A ctive codeine Codeine nausea and vomiting Drug Allergy Active Reason For Referral No Information Medications Medication SIG (Take, Route, Fr equency, Duration) Notes Start Date End Date Status Synthroid 150 MCG 1 tablet Orally Once a day Active Premarin 0.625 MG/GM Vaginal Active Problems Problem Type SNOMED Code ICD Code Onset Dates Problem Status W/U Status Risk Notes Problem Pain in limb (50763616) Pain in Limb (729.5) Active confirmed Problem Hallux valgus (574766618) Hallux Valgus (735.0) Active confirmed Problem Hammer toe (461068632) Hammer toe (735.4) Active confirmed Plan Of Treatment No Information Insurance Providers Payer Name Payer Address Payer Phone Subscriber Number Group Number Insured Name Patient Relationship to Insured Coverage Start Date Coverage End Date [facility] [address] [facility] [place] [id number] [phone] [id number] He Moralez Spouse - patient is the spouse of the insured Medical (General) History Medical History History ICD Code osteoarthritis asthma Back,Hip,and Knee pain Cataracts keloids Thyroid disorder Measles Mumps Chicken pox Surgical History Surgery Date(Month/Year) section 1972, 1973 appendectomy 1978 spine surgery 1984 cataract surgery 2009 ovarian surgery 2010
--- NOTE | 2025-04-20 14:16 | PFT_ITS ---
Flows: FEV1: 93 % of predicted at 2.17 L FVC: 100 % of predicted at 3.07 L FEV1/FVC: 71 % Bronchodilator response: Present Volumes: Total lung capacity: 87 % of predicted at 4.88 L Residual volume: 79 % of predicted at 1.88 L Slow vital capacity: 95 % of predicted at 3.00 L Expiratory reserve volume: 26 % of predicted at 0.21 L Diffusion capacity: Normal Impression: Reversible moderate obstructive ventilatory defect with positive bronchodilator response. Decreased expiratory reserve volume suggests extrathoracic restriction likely secondary to abdominal obesity. MTDD
== END 2025-04-20 10:51 | disposition home or self-care (01) ==
LOC: HO.RESP 10:50
PROVIDERS: PCP Nurse Practitioner Family; Visit Provider Hospitalist
DX: R06.00 Dyspnea, unspecified (principal); J45.909 Unspecified asthma, uncomplicated; Z87.891 Personal history of nicotine dependence
CPT/HCPCS: 94010; 94640; 94727; 94729

== ENCOUNTER → 2025-04-20 14:16 | Outpatient (BNV) | payer MEDICARE, SELFPAY | PROVIDERS: PCP Nurse Practitioner Family; Visit Provider Internal Medicine Pulmonary Disease | DX: J98.4 Other disorders of lung (principal) | CPT/HCPCS: 94060; 94727; 94729 ==

== ENCOUNTER 2025-05-03 10:51 | Outpatient (AMB) | payer MEDICARE, SELFPAY ==
[2025-05-03 10:58] VITALS: BP 120/64; PULSE 73; O2SAT 96; BMI 31.4
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
--- OUTSIDE RECORDS SUMMARY | 2025-05-03 11:34 | XMS_ITS | Patient Health Record ---
Author Organization [facility] Address [address] [place] [address] Care Team Providers Care Lead Ingot Molder Name Role Phone Armida DAVID, Titi Primary Care Provider Unavaila ble Black, Josie Unavailable [phone] Allergies Allergen (clinical drug ingredient) Drug/Non Drug Allergy documented on EMR Reaction Allergy Type Onset Date Status meperidine Demerol palpitations Drug Allergy Act lan Penicillin hives Drug Allergy Active erythromycin hives Drug Allergy Acti ve codeine Codeine nausea and vomiting Drug Allergy Active Reason For Referral No Information Medications Medication SIG (Take, Route, Fr equency, Duration) Notes Start Date End Date Status Synthroid 150 MCG 1 tablet Orally Once a day Active Premarin 0.625 MG/GM Vaginal Active Problems Problem Type SNOMED Code ICD Code Onset Dates Problem Status W/U Status Risk Notes Problem Pain in limb (82459316) Pain in Limb (729.5) Active confirmed Problem Hallux valgus (570961617) Hallux Valgus (735.0) Active confirmed Problem Hammer toe (968342217) Hammer toe (735.4) Active confirmed Plan Of Treatment No Information Insurance Providers Payer Name Payer Address Payer Phone Subscriber Number Group Number Insured Name Patient Relationship to Insured Coverage Start Date Coverage End Date [facility] [address] [facility] [place] [phone] [id number] He Moralez Spouse - patient is the spouse of the insured Medical (General) History Medical History History ICD Code osteoarthritis asthma Back,Hip,and Knee pain Cataracts keloids Thyroid disorder Measles Mumps Chicken pox Surgical History Surgery Date(Month/Year) section 1972, 1973 appendectomy 1979 spine surgery 1983 cataract surgery 2009 ovarian surgery 2010
--- OUTSIDE RECORDS SUMMARY | 2025-05-03 11:34 | XMS_ITS | Encounter Summary ---
Author Organization [facility] Address [address] [place] [address] [place] [id number] Phone Care Team Providers Care Steward/Stewardess Chief Cargo Vessel Name Role Phone Caridad Mcqueen CULTURAL ANTHROPOLOGY PROFESSOR Primary Care Provider + Encounter Details Date Type Department Care Team (Late st Contact Info) Description 06/08/2023 Procedure Pass [facility], [place] [address] [place] [address] Social History Tobacco Use Types Packs/Day Years [...] on filedocumented in this encounter Care Teams Steward/Stewardess Chief Cargo Vessel Relationship Specialty Start Date End Date Caridad Mcqueen NP [address] [place] [address] PCP - General Nurse Practitioner 06/04/23 documented as of this encounter Additional Source Comments The information contained in this document represents components of the legal health record. It is not the complete legal health record.[facility]
== END 2025-05-03 11:45 | disposition home or self-care (01) ==
LOC: HO.HPS 10:51
PROVIDERS: PCP Nurse Practitioner Family; Visit Provider Hospitalist
DX: J45.50 Severe persistent asthma, uncomplicated (principal); G47.33 Obstructive sleep apnea (adult) (pediatric); J30.1 Allergic rhinitis due to pollen; R91.8 Other nonspecific abnormal finding of lung field; R06.00 Dyspnea, unspecified; J40 Bronchitis, not specified as acute or chronic
CPT/HCPCS: 99214; G2211

== ENCOUNTER → 2025-05-03 10:51 | Outpatient (BNVA) | payer MEDICARE, SELFPAY | PROVIDERS: PCP Nurse Practitioner Family; Visit Provider Hospitalist | DX: J45.50 Severe persistent asthma, uncomplicated (principal); R06.00 Dyspnea, unspecified; G47.33 Obstructive sleep apnea (adult) (pediatric); J30.1 Allergic rhinitis due to pollen; R91.8 Other nonspecific abnormal finding of lung field; J40 Bronchitis, not specified as acute or chronic | CPT/HCPCS: 99212 ==